=== PATIENT | male | born 1955 | race Caucasian/White ===

== ENCOUNTER 2019-11-19 14:02 | Outpatient (CLI) | payer BC, SELFPAY ==
--- NOTE | ~2019-11-19 | XR_ITS ---
EXAMINATION: XR chest 2V EXAM DATE: 11/19/2019 14:19 INDICATION: Cough. TECHNIQUE: Frontal and lateral projections of the chest obtained and reviewed. Comparison is made to prior examination from 05/17/2014. FINDINGS: Round right basilar nodular density probably patient's nipple. The lungs are otherwise leny r. There are no pleural effusions. The cardiomediastinal silhouette is within normal limits. There is no pneumothorax suspected. Small to moderate-sized bridging thoracic endplate osteophytes. Diffu se idiopathic skeletal hyperostosis. IMPRESSION: No acute cardiopulmonary findings. Reviewed, dictated and finalized at location B.
[2019-11-19 15:13] LABS: Basophils Absolute Auto 0.1 K/mm3 (0.0-0.1); Basophils Percent Auto 0.5 % (0.2-1.2); Eosinophils Absolute Auto 0.3 K/mm3 (0-0.3); Eosinophils Percent Auto 2.3 % (0-4.4); Hematocrit 46.4 % (42.0-52.0); Hemoglobin 15.9 g/dL (14.0-18.0); Immature Granulocyte Absolute 0.05 K/mm3 (0.00-0.031); Immature Granulocyte Percent A 0.4 % (0-0.5); Lymphocytes Absolute Auto 3.46 K/mm3 (0.9-3.2); Lymphocytes Percent Auto 26.1 % (18.3-44.2); Mean Corpuscular HGB Conc 34.3 g/dl (32-36); Mean Corpuscular Hemoglobin 29.7 pg (26-34); Mean Corpuscular Volume 86.7 fl (80-100); Monocytes Percent Auto 7.5 % (2.6-8.5); Neutrophils Absolute Auto 8.4 K/mm3 (1.3-6.7); Neutrophils Percent Auto 63.2 % (45.5-73.1); Platelet Count Result 323 k/mm3 (150-375); Red Blood Count 5.35 M/mm3 (4.6-6.20); White Blood Count 13.3 K/mm3 (4.5-10.0)
[2019-11-19 16:25] LABS: Hemoglobin A1C 8.5 % (<5.7)
== END 2019-11-19 14:03 | disposition home or self-care (01) ==
PROVIDERS: PCP Family Medicine; Visit Provider Family Medicine
DX: R05 Cough (principal); D72.829 Elevated white blood cell count, unspecified; R73.9 Hyperglycemia, unspecified
CPT/HCPCS: 36415; 71046; 83036; 85025

== ENCOUNTER 2021-02-08 08:15 | Outpatient (CLI) | payer BC, OTHER, SELFPAY ==
--- NOTE | 2021-02-08 08:43 | ECHO_ITS ---
Patient Info Name: Az Vick Age: 65 years : 1955 Gender: Male Ht: 72 in Wt: 200 lbs BSA: 2.16 m2 HR: 69 bpm BP: 194 / 105 mmHg Technical Quality: Fair Exam Date: 02/08/2021 8:59 AM Exam Location: [facility] Patient Status: Outpatient Admit Date: 02/08/2021 Staff Ordering Physician: Cat Comer PAC Real Estate Lawyer: Sandra Hannah RDCS Attending Provider: Cat Comer Referring Physician: Nahomi GONZALEZ; Exam Type: CA echo doppler color flow Study Info Indications R01.1 - Cardiac murmur, unspecified Complete two-dimensional, color flow and Doppler transthoracic echocardiogram is performed. Summary 1. Complete two-dimensional, color flow and Doppler transthoracic echocardiogram is performed. 2. Left ventricular chamber dimension is normal. 3. Left ventricular systolic function is normal, estimated at 60-65%. 4. The left ventricular diastolic function is grade II diastolic dysfunction. 5. E/e' 9 is minimally elevated. 6. Global longitudinal strain is normal at -17.8%. 7. There is trace tricuspid valve regurgitation. 8. No pulmonary hypertension, estimated pulmonary arterial systolic pressure is 17 mmHg. Left Ventricle E/e' 9 is minimally elevated. Global longitudinal strain is normal at -17.8%. Left ventricular chamber dimension is normal. Left ventricular systolic function is normal, estimated at 60-65%. The left ventricular diastolic function is grade II diastolic dysfunction. Right Ventricle Right ventricular chamber dimension is normal. Right ventricular systolic function is normal. Left Atria Left atrial chamber dimension is normal. Right Atria Right atrial chamber dimension is normal. Aortic Valve The aortic valve is trileaflet. There is no aortic valve stenosis. There is no aortic valve regurgitation. Pulmonic Valve There is no pulmonic regurgitation. Mitral Valve There is no mitral valve stenosis. There is no mitral valve regurgitation. Tricuspid Valve There is trace tricuspid valve regurgitation. No pulmonary hypertension, estimated pulmonary arterial systolic pressure is 17 mmHg. Pericardium/Pleural There is no pericardial effusion. Inferior Vena Cava Normal inferior vena cava with >50% collapse upon inspiration consistent with normal right atrial pressure, 5 mmHg. Aorta The aortic root size at the sinus of Valsalva is normal. Left Ventricular Outflow Tract Name Value Normal LVOT 2D LVOT Diameter 2.0 cm LVOT Doppler LVOT Peak Gradient 5 mmHg LVOT Mean Gradient 3 mmHg LVOT VTI 26 cm LVOT VTI/AV VTI Ratio 0.8 LVOT Stroke Volume 84 ml LVOT CO 5.4 l/min LVOT CI 2.5 l/min/m2 Pulmonic Valve Name Value Normal RVOT Doppler
== END 2021-02-08 08:16 | disposition home or self-care (01) ==
PROVIDERS: PCP Family Medicine; Visit Provider Physician Assistant Medical
DX: R01.1 Cardiac murmur, unspecified (principal); I36.1 Nonrheumatic tricuspid (valve) insufficiency
CPT/HCPCS: 93306

== ENCOUNTER 2021-03-19 12:33 | Outpatient (CLI) | payer BC, OTHER, SELFPAY ==
[2021-03-19 13:38] LABS: Basophils Absolute Auto 0.1 K/mm3 (0.0-0.1); Basophils Percent Auto 0.4 % (0.2-1.2); Eosinophils Absolute Auto 0.4 K/mm3 (0-0.3); Eosinophils Percent Auto 3.2 % (0-4.4); Hematocrit 44.4 % (42.0-52.0); Hemoglobin 15.1 g/dL (14.0-18.0); Immature Granulocyte Absolute 0.05 K/mm3 (0.00-0.031); Immature Granulocyte Percent A 0.4 % (0-0.5); Lymphocytes Absolute Auto 3.45 K/mm3 (0.9-3.2); Lymphocytes Percent Auto 25.9 % (18.3-44.2); Mean Corpuscular Hemoglobin 30.1 pg (26-34); Mean Corpuscular Volume 88.4 fl (80-100); Mean Platelet Volume 11.8 fl (7.4-10.4); Monocytes Absolute Auto 1.1 K/mm3 (0.1-0.6); Neutrophils Absolute Auto 8.3 K/mm3 (1.3-6.7); Neutrophils Percent Auto 62.1 % (45.5-73.1); Platelet Count Result 306 k/mm3 (150-375); Red Blood Count 5.02 M/mm3 (4.6-6.20); Red Cell Distribution Width 12.2 % (11.5-14.5); White Blood Count 13.3 K/mm3 (4.5-10.0)
[2021-03-19 13:50] LABS: Hemoglobin A1C 9.5 % (<5.7)
[2021-03-19 13:57] LABS: Alanine Aminotransferase 23 U/L (4-50); Albumin Level 4.5 g/dL (3.5-5.1); Alkaline Phosphatase 78 U/L (38-126); Anion Gap 8 mmol/L (8-16); Aspartate Amino Transferase 23 U/L (17-59); Bilirubin,Total 0.8 mg/dL (0.2-1.3); Blood Urea Nitrogen 19 mg/dL (9-20); Calcium 9.5 mg/dL (8.4-10.2); Carbon Dioxide 31 mmol/L (22-30); Chloride 102 mmol/L (98-107); Cholesterol 108 mg/dL (0-200); Estimated Glomerular Filt Rate > 60; Glucose 238 mg/dL (75-110); HDL Direct 39 mg/dL; Potassium 3.8 mmol/L (3.4-5.0); Sodium 141 mmol/L (137-145); Triglycerides 121 mg/dL (<150)
[2021-03-19 14:08] LABS: LDL Cholesterol Direct 45 mg/dL
[2021-03-19 14:24] LABS: Prostate Specific Antigen 0.7 ng/mL (< OR = 4.0)
[2021-03-19 19:15] LABS: Microalbumin Urine Random 231.8 mg/L (0-16.7)
[2021-03-19 19:47] LABS: Creatinine Urine 420.5 mg/dL; MALB Creatinine Ratio 55.1 mg/g (0-30)
== END 2021-03-19 12:34 | disposition home or self-care (01) ==
LOC: ANHLAB 12:36
PROVIDERS: PCP Family Medicine; Visit Provider Physician Assistant Medical
DX: E11.9 Type 2 diabetes mellitus without complications (principal); E78.2 Mixed hyperlipidemia; D72.829 Elevated white blood cell count, unspecified; Z12.5 Encounter for screening for malignant neoplasm of prostate
CPT/HCPCS: 36415; 80053; 80061; 82043; 83036; 84153; 85025; G0103

== ENCOUNTER 2021-04-20 02:54 | Day surgery (SDC) | payer BC, OTHER, SELFPAY ==
[2021-04-18 15:56] VITALS: BMI 27.1
--- NOTE | 2021-04-20 07:17 | PM.HPGS ---
History of Present Illness History of Present Illness Consent: Risks, benefits, and alternatives have been discussed and questions answered. Patient agrees to proceed with procedure. Chief complaint: neoplasm screening Narrative: Az Vick is a 65 year old male referred for colon cancer screening. Review of Systems Review of Systems: All systems reviewed & are unremarkable except as noted in HPI and below PMFSH Past Medical History Medical History BMI 28.0-28.9,adult Cough Diabetes mellitus Diastolic dysfunction Elevated blood sugar Elevated white blood cell count Mixed hyperlipidemia Neuropathy Sleep apnea in adult Family History Family History Sibling Family history of diabetes mellitus in first degree relative Father Family history of coronary artery disease Social History Social History Smoking packs per day: 1 Smoking cigarettes per day: 20.0 Years smoked: 20 Smoking pack-years: 20.00 Smoking status: Current every day smoker Tobacco type: cigarettes Alcohol intake: never Substance use: never Substance use type: does not use Living arrangements: with family Spiritual care concerns: No Meds Home Medications and Allergies Home Medications Medication Instructions Recorded Confirmed Type blood sugar diagnostic #60 each 01/05/20 04/11/21 Rx lisinopril 10 mg tablet 10 mg PO DAILY #90 tablet 03/21/21 04/18/21 Rx rosuvastatin 40 mg tablet 40 mg PO DAILY #90 tablet 03/21/21 04/18/21 Rx gabapentin 600 mg PO TID PRN 04/18/21 04/18/21 History metformin 1,000 mg PO BID 04/18/21 04/18/21 History Allergies Allergy/AdvReac Type Severity Reaction Status Date / Time No Known Allergies Verified 04/20/21 11:39 Exam Resp: Auscultation: clear to auscultation bilaterally Cardio: Rate: regular rate Rhythm: regular rhythm GI: GI Palp: Yes Soft to palpation and No Tenderness to palpation present (GI) Assessment and Plan Assessment and plan (1) Screen for colon cancer: Code(s): Z12.11 - Encounter for screening for malignant neoplasm of colon Status: Acute Assessment and Plan: Colonoscopy with possible biopsy or polypectomy or cautery or injection of substances.
[2021-04-20 11:40] VITALS: BP 125/72; PULSE 60; RESP 18; TEMP 36.3; O2SAT 100
--- NOTE | 2021-04-20 12:05 | WPDANESEPPF ---
Anes - Initial Pre Proc Eval Procedure: Operation Date: 04/20/21 12:00 Proposed Procedures p Screening Colonoscopy - Dave Ortega MD Date/Time: 04/20/21 12:05 Surgeon: Dave Ortega MD Pre Op Diagnosis: neoplasm screening Patient Data Age: 65 Gender: M Height: 1.83 m Weight: 89.1 kg Last Vital Signs Temp 36.3 C L 04/20/21 11:40 Pulse 60 04/20/21 11:40 Resp 18 04/20/21 11:40 BP 125/72 04/20/21 11:40 Pulse Ox 100 04/20/21 11:40 Allergies Allergy/AdvReac Type Severity Reaction Status Date / Time No Known Allergies Verified 04/20/21 11:39 Home Medications Medication Instructions Recorded Confirmed Type blood sugar diagnostic #60 each 01/05/20 04/11/21 Rx lisinopril 10 mg tablet 10 mg PO DAILY #90 tablet 03/21/21 04/18/21 Rx rosuvastatin 40 mg tablet 40 mg PO DAILY #90 tablet 03/21/21 04/18/21 Rx gabapentin 600 mg PO TID PRN 04/18/21 04/18/21 History metformin 1,000 mg PO BID 04/18/21 04/18/21 History Patient hx anesthesia problems: none Family hx anesthesia problems: none PMFSH Past Medical History Medical History BMI 28.0-28.9,adult Cough Diabetes mellitus Diastolic dysfunction Elevated blood sugar Elevated white blood cell count Mixed hyperlipidemia Neuropathy Sleep apnea in adult Family History Family History Sibling Family history of diabetes mellitus in first degree relative Father Family history of coronary artery disease Social History Social History Smoking packs per day: 1 Smoking cigarettes per day: 20.0 Years smoked: 20 Smoking pack-years: 20.00 Smoking status: Current every day smoker Tobacco type: cigarettes Alcohol intake: never Substance use: never Substance use type: does not use Living arrangements: with family Spiritual care concerns: No Anes - Eval Final PreProcedure Day of Procedure 04/20/21 12:05 Patient weight: overweight Heart: regular rate and rhythm Lungs: decreased breath sounds Airway: Mallampati scale class II Neurological: alert and oriented Last oral intake: >/= 8 hours ASA classification: III Emergent: no Anesthetic plan: proceed Anesthesia type and monitoring: general GIVS and standard monitoring Informed Consent: The patient's anesthetic plan and its attendant risks and benefits were discussed with the patient/family/POA. Questions were solicited and answers provided to the satisfaction of the patient/family/POA.
[2021-04-20 12:06] LABS: Glucose Point of Care 177 mg/dl (65-105)
[2021-04-20] MEDS: LACTATED RINGERS 1,000 ML 150 ML IV CONT (12:18)
[2021-04-20] MEDS: SIMETHICONE ORAL SUSPENSION 20 MG/0.3 ML 30 ML BOTTLE 0.6 ML IRRIGATION (12:30)
[2021-04-20 12:35] VITALS: BP 95/57; PULSE 58; RESP 15; O2SAT 93
[2021-04-20 12:45] VITALS: BP 99/65; PULSE 52; RESP 14; O2SAT 93
[2021-04-20 12:55] VITALS: BP 126/71; PULSE 54; RESP 14; O2SAT 94
== END 2021-04-20 13:14 | disposition home or self-care (01) ==
PROVIDERS: PCP Family Medicine; Visit Provider Internal Medicine Gastroenterology
PROC: 0DJD8ZZ Inspection of Lower Intestinal Tract, Via Natural or Artificial Opening Endoscopic (ICD-10-PCS; CPT 45378; principal; 2021-04-20 12:00)
DX: Z12.11 Encounter for screening for malignant neoplasm of colon (principal); E78.2 Mixed hyperlipidemia; E11.40 Type 2 diabetes mellitus with diabetic neuropathy, unspecified; I51.89 Other ill-defined heart diseases; G47.30 Sleep apnea, unspecified; F17.210 Nicotine dependence, cigarettes, uncomplicated; Z79.84 Long term (current) use of oral hypoglycemic drugs
CPT/HCPCS: 45378; 82948; J2704; J7120

== ENCOUNTER 2021-05-22 14:00 | Outpatient (CLI) | payer MEDICARE, BC, OTHER, SELFPAY ==
[2021-05-22 14:32] LABS: Basophils Absolute Auto 0.1 K/mm3 (0.0-0.1); Basophils Percent Auto 0.5 % (0.2-1.2); Eosinophils Absolute Auto 0.5 K/mm3 (0-0.3); Eosinophils Percent Auto 3.5 % (0-4.4); Hematocrit 43.2 % (42.0-52.0); Hemoglobin 14.9 g/dL (14.0-18.0); Immature Granulocyte Absolute 0.03 K/mm3 (0.00-0.031); Immature Granulocyte Percent A 0.2 % (0-0.5); Lymphocytes Absolute Auto 3.95 K/mm3 (0.9-3.2); Lymphocytes Percent Auto 27.7 % (18.3-44.2); Mean Corpuscular HGB Conc 34.5 g/dl (32-36); Mean Corpuscular Hemoglobin 30.1 pg (26-34); Mean Corpuscular Volume 87.3 fl (80-100); Mean Platelet Volume 11.4 fl (7.4-10.4); Monocytes Absolute Auto 1.1 K/mm3 (0.1-0.6); Monocytes Percent Auto 7.9 % (2.6-8.5); Neutrophils Absolute Auto 8.6 K/mm3 (1.3-6.7); Neutrophils Percent Auto 60.2 % (45.5-73.1); Platelet Count Result 286 k/mm3 (150-375); Red Blood Count 4.95 M/mm3 (4.6-6.20); Red Cell Distribution Width 12.8 % (11.5-14.5); White Blood Count 14.3 K/mm3 (4.5-10.0)
[2021-05-22 15:15] LABS: Erythrocyte Sedimentation Rate 17 mm/hr (0-20)
[2021-05-22 16:59] LABS: Alanine Aminotransferase 31 U/L (4-50); Albumin Level 4.6 g/dL (3.5-5.1); Alkaline Phosphatase 76 U/L (38-126); Anion Gap 12 mmol/L (8-16); Aspartate Amino Transferase 27 U/L (17-59); Bilirubin,Total 0.5 mg/dL (0.2-1.3); Blood Urea Nitrogen 15 mg/dL (9-20); CRP < 0.5 mg/dL (<1.0); Calcium 9.5 mg/dL (8.4-10.2); Carbon Dioxide 23 mmol/L (22-30); Chloride 109 mmol/L (98-107); Estimated Glomerular Filt Rate > 60; Glucose 201 mg/dL (65-110); Potassium 4.1 mmol/L (3.4-5.0); Sodium 144 mmol/L (137-145)
[2021-05-24 15:45] LABS: BCR/abl Prior Result Not Given
[2021-05-24 16:32] LABS: BCR/abl P190 Not Detected; BCR/abl P210 Not Detected
[2021-05-24 16:33] LABS: BCR/abl P190 Chg YES; BCR/abl P210 Chg YES
== END 2021-05-22 14:01 | disposition home or self-care (01) ==
LOC: ANHLAB 14:07
PROVIDERS: PCP Family Medicine; Visit Provider Internal Medicine Hematology & Oncology
DX: D72.829 Elevated white blood cell count, unspecified (principal)
CPT/HCPCS: 36415; 80053; 81206; 81207; 85025; 85652; 86140; 88184

== ENCOUNTER 2022-05-28 14:07 | Outpatient (CLI) | payer MEDICARE, BC, OTHER, SELFPAY ==
[2022-05-28 14:47] LABS: Hematocrit 42.6 % (42.0-52.0); Hemoglobin 14.1 g/dL (14.0-18.0); Mean Corpuscular HGB Conc 33.1 g/dl (32-36); Mean Corpuscular Hemoglobin 30.1 pg (26-34); Mean Corpuscular Volume 90.8 fl (80-100); Mean Platelet Volume 11.8 fl (7.4-10.4); Platelet Count Result 328 k/mm3 (150-375); Red Blood Count 4.69 M/mm3 (4.6-6.20); Red Cell Distribution Width 12.6 % (11.5-14.5); White Blood Count 13.8 K/mm3 (4.5-10.0)
[2022-05-28 15:12] LABS: Alanine Aminotransferase 26 U/L (6-50); Albumin Level 4.6 g/dL (3.5-5.1); Alkaline Phosphatase 71 U/L (38-126); Anion Gap 9 mmol/L (8-16); Aspartate Amino Transferase 24 U/L (17-59); Bilirubin,Total 0.7 mg/dL (0.2-1.3); Blood Urea Nitrogen 20 mg/dL (9-20); Calcium 9.1 mg/dL (8.4-10.2); Carbon Dioxide 26 mmol/L (22-30); Chloride 104 mmol/L (98-107); Cholesterol 89 mg/dL (0-200); Estimated Glomerular Filt Rate > 60; Glucose 159 mg/dL (65-110); HDL Direct 45 mg/dL; Potassium 3.9 mmol/L (3.4-5.0); Sodium 139 mmol/L (137-145); Triglycerides 70 mg/dL (<150)
[2022-05-28 15:22] LABS: LDL Cholesterol Direct 31 mg/dL
[2022-05-28 15:26] LABS: Creatinine Urine 28.9 mg/dL
[2022-05-28 15:30] LABS: MALB Creatinine Ratio 77.5 mg/g (0-30); Microalbumin Urine Random 22.4 mg/L (0-16.7)
[2022-05-28 15:41] LABS: Prostate Specific Antigen 0.7 ng/mL (< OR = 4.0)
[2022-05-28 16:24] LABS: Vitamin D 25 Hydroxy 38.9 ng/mL
[2022-06-01 09:30] LABS: Testosterone Total 450 ng/dL (250-1100)
== END 2022-05-28 14:08 | disposition home or self-care (01) ==
LOC: ANHLAB 14:11
PROVIDERS: PCP Family Medicine; Visit Provider Nurse Practitioner Family
DX: Z12.5 Encounter for screening for malignant neoplasm of prostate (principal); E11.9 Type 2 diabetes mellitus without complications; Z13.29 Encounter for screening for other suspected endocrine disorder; E34.9 Endocrine disorder, unspecified; I10 Essential (primary) hypertension; E78.2 Mixed hyperlipidemia; E55.9 Vitamin D deficiency, unspecified
CPT/HCPCS: 36415; 80053; 80061; 82043; 82306; 84153; 84402; 84403; 84443; 85027; G0103

== ENCOUNTER 2024-09-26 00:13 | Observation (INO) | payer MEDICARE, OTHER, SELFPAY ==
[2024-09-26] VITALS (17 sets, daily range): BP systolic 123–195; BP diastolic 60–93; PULSE 50–118; RESP 13–20; TEMP 36.4–36.9; O2SAT 97–100; BMI 23.0
--- NOTE | ~2024-09-26 | CT_ITS ---
CTA brain carotid Ordering provider: Tu Alvarez History: . r/o cva . Comparison: 02/10/2018 Technique: CT angiogram head and neck was performed following timed intravenous injection of contrast . Thin slice axial images and reformatted coronal images were obtained. Three dimensional reformatted images of the brain were also obtained using a [employer] workstation. DLP: 1893 mGy-cm FINDINGS: HEAD: --ANTERIOR AND MIDDLE CEREBRAL ARTERIES AND BRANCHES: Normal caliber and contour. --INTERNAL CAROTID ARTERIES: No significant stenosis. No occlusion. --BASILAR ARTERY AND BRANCHES: Normal caliber and contour. No atheromatous disease. --POSTERIOR CEREBRAL ARTERIES: Normal caliber and contour --POSTERIOR COMMUNICATING ARTERIES: Not well visualized likely related to congenital absence or small size. --ANEURYSM: None visualized. --BRAIN: No acute intracranial hemorrhage or suspicious mass effect. The ventricles are normal in contour and size. Dumont-white matter differentiation is unremarkable. Possible prior right lacunar infarct within the thalamus. --BONES AND SUPERFICIAL SOFT TISSUES: No acute displaced fracture within the overlying cranium. No sc alp hematoma. --PARANASAL SINUSES AND MASTOIDS: The paranasal sinuses are clear. The mastoid air cells are well aerated. NECK: --RIGHT CERVICAL CAROTID SYSTEM: Mild atheromatous disease of the carotid bulb and proximal internal carotid artery without significant stenosis. Percent stenosis per NASCET criteria is 0% No carotid d issection. --LEFT CERVICAL CAROTID SYSTEM: Mild atheromatous disease of the carotid bulb and proximal internal c arotid artery without significant stenosis. Percent stenosis per NASCET criteria is 0% No carotid di ssection. --VERTEBRAL ARTERIES: Asymmetry within the vertebral arteries with the caliber of the left vertebral artery markedly diminutive in comparison to the right. --VISUALIZED AORTIC ARCH AND BRANCHING VESSELS: Mild atheromatous disease but no significant stenosis . --SOFT TISSUES: Normal. --CERVICAL SPINE: Age appropriate degenerative changes. IMPRESSION: 1. Normal CTA head and neck. Percent stenosis per NASCET criteria is 0% bilaterally 2. No acute intracranial hemorrhage or suspicious mass effect. 3. Prior right-sided lacunar infarct. Reviewed, dictated and finalized at location A. ARCHITECT IMPRESSION: 1. Normal CTA head and neck. Percent stenosis per NASCET criteria is 0% bilciara harrison 2. No acute intracranial hemorrhage or suspicious mass effect. 3. Prior right-sided lacunar infarct.
--- NOTE | ~2024-09-26 | MR_ITS ---
EXAMINATION: MR brain/brain stem wo/w con DATE: 09/26/2024 10:56 INDICATION: Left facial droop TECHNIQUE: Magnetic resonance imaging (MRI) of the brain and brainstem was performed without and with 19 mL MultiHance intravenous contrast. Sequences included sagittal and axial T1-weighted SE, axial d iffusion-weighted FS EPI ASSET, axial T2*-weighted GRE, axial T2-weighted FLAIR Propeller, and axial T2-weighted Propeller. Postcontrast axial and coronal T1-weighted SE was obtained. Apparent diffusion coefficient (ADC) maps were created. COMPARISON: CT brain 02/10/2018 FINDINGS: Focal diffusion restriction involving the anterior portion of the right thalamus, with corresponding T2 and FLAIR hyperintensity. No MRI evidence of hemorrhage or extra-axial collection. No suspicious f oci of susceptibility to suggest prior intraparenchymal hemorrhage. Scattered foci of white matter hy perintensity, likely representing mild small vessel ischemic disease. No evidence of advanced or loba r predominant parenchymal volume loss. The basilar cisterns are patent. Flow voids are preserved. Fro ntal, ethmoid, and maxillary callosal thickening. Globes and orbital contents are within normal limit s. No abnormal enhancement detected. IMPRESSION: Focal acute infarct involving the anterior portion of the right thalamus. Reviewed, dictated and finalized at location K. ORT SCREENER
--- NOTE | ~2024-09-26 | XR_ITS ---
CHEST RADIOGRAPH CLINICAL HISTORY: possible stroke . COMPARISON: 11/19/2019 TECHNIQUE: Single portable view of the chest. FINDINGS The cardiomediastinal silhouette is unremarkable. The lungs are clear. Visualized osseous structures and soft tissues are unremarkable. IMPRESSION: No focal infiltrate or effusion. Reviewed, dictated and finalized at location A. STRETCHING MACHINE OPERATOR
--- NOTE | 2024-09-26 00:37 | ECG_ITS ---
Test Date: 2024-09-26 00:41:10 Measurements Intervals [place] Rate: 55 P: 38 [place]: 177 QRS: -38 QRSD: 114 T: 8 QT: 410 QTc: 393 Interpretive Statements SINUS BRADYCARDIA MARKED LEFT AXIS DEVIATION [QRS AXIS < -30] MODERATE INTRAVENTRICULAR CONDUCTION DELAY [110+ ms QRS DURATION] No previous ECG available for comparison Electronically Signed On 09-26-2024 10:04:26 [employer] by Kavin Quintana M.D.
[2024-09-26 01:32] LABS: Basophils Absolute Auto 0.1 K/mm3 (0.0-0.1); Basophils Percent Auto 0.5 % (0.2-1.2); Eosinophils Absolute Auto 0.9 K/mm3 (0-0.3); Eosinophils Percent Auto 8.1 % (0-4.4); Hematocrit 39.6 % (42.0-52.0); Hemoglobin 13.3 g/dL (14.0-18.0); Immature Granulocyte Absolute 0.02 K/mm3 (0.00-0.031); Immature Granulocyte Percent A 0.2 % (0-0.5); Lymphocytes Absolute Auto 4.16 K/mm3 (0.9-3.2); Lymphocytes Percent Auto 38.6 % (18.3-44.2); Mean Corpuscular HGB Conc 33.6 g/dl (32-36); Mean Corpuscular Hemoglobin 30.2 pg (26-34); Mean Platelet Volume 12.2 fl (7.4-10.4); Monocytes Percent Auto 9.1 % (2.6-8.5); Neutrophils Absolute Auto 4.7 K/mm3 (1.3-6.7); Neutrophils Percent Auto 43.5 % (45.5-73.1); Platelet Count Result 262 k/mm3 (150-375); Red Cell Distribution Width 12.6 % (11.5-14.5); White Blood Count 10.8 K/mm3 (4.5-10.0)
[2024-09-26 01:43] LABS: Alanine Aminotransferase 24 U/L (6-50); Albumin Level 3.6 g/dL (3.5-5.1); Alkaline Phosphatase 84 U/L (38-126); Anion Gap 5 mmol/L (4-12); Aspartate Amino Transferase 25 U/L (17-59); Bilirubin,Total 0.4 mg/dL (0.2-1.3); Blood Urea Nitrogen 23 mg/dL (9-20); Calcium 8.3 mg/dL (8.4-10.2); Carbon Dioxide 30 mmol/L (22-30); Chloride 106 mmol/L (98-107); Estimated CRCL calculation 73 ml/min; Estimated Glomerular Filt Rate > 60; Glucose 166 mg/dL (65-110); INR 1.5; Partial Thromboplastin Time 26.2 Seconds (22.3-36.8); Potassium 3.8 mmol/L (3.4-5.0); Prothrombin Time 18.4 Seconds (11.1-14.7); Sodium 141 mmol/L (137-145)
[2024-09-26 01:54] LABS: Troponin I < 0.012 ng/mL (0.000-0.034)
--- NOTE | 2024-09-26 03:50 | ED.GENADULT ---
HPI - General Adult General Chief complaint: Recheck/Abnormal Lab/Rx Stated complaint: Elevated BP Time Seen by Provider: 09/26/24 00:39 History of Present Illness HPI narrative: This is a 69-year-old male presenting concerns for stroke. Starting 2 days ago the patient developed mild left-sided facial droop, balance disturbances, and persistently elevated blood pressures. His also thinks he has been more confused than usual. The patient himself admits to having some trouble with his balance. He is denying any other neurologic symptoms. No other physical complaints. Related Data Allergies Allergy/AdvReac Type Severity Reaction Status Date / Time No Known Allergies Allergy Verified 09/26/24 00:25 [facility] Past Medical History Medical History Adult BMI 25.0-25.9 kg/sq m Diastolic dysfunction BMI 28.0-28.9,adult Diabetes mellitus Elevated white blood cell count Cough Elevated blood sugar Mixed hyperlipidemia Neuropathy Sleep apnea in adult Family History Family History Sibling Family history of diabetes mellitus in first degree relative Father Family history of coronary artery disease Alcoholism Cancer Mother Cerebrovascular accident Dementia Diabetes mellitus Sibling Cancer Diabetes mellitus Social History Social History Smoking packs per day: 1 Smoking cigarettes per day: 20.0 Years smoked: 20 Smoking pack-years: 20.00 Smoking status: Current every day smoker Tobacco type: cigarettes Second hand tobacco smoke exposure: Yes Alcohol intake: never Substance use: never Substance use type: does not use Do You Feel Safe in your Home?: Yes Lack of Transportation: No Lack of Food: Never True Current Housing: I Have Housing Concerned About Future Housing: No Difficulty Paying Gas/Electric Bills: No Difficulty Paying for Meds: No Currently Unemployed: No Education: Trade/Vocational Certificate Difficulty w/ Childcare or Family Care: No Living arrangements: with family Occupation/Education: retired 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 Head: atraumatic. EYES: EOMI, NOSE: Atraumatic NECK: Trachea midline RESPIRATORY: No increased rate of breathing CARDIOVASCULAR: RRR, ABDOMINAL: Non-distended MUSCULOSKELETAl: No obvious deformities NEURO: Alert. Moving 4/4 extremities SKIN:: Warm, dry. Normal color PSYCHIATRIC: Normal affect NIH Stroke Scale/Score (NIHSS) from [email or web address] on 09/26/2024 All calculations should be rechecked by clinician prior to use RESULT SUMMARY: 1 points NIH Stroke Scale INPUTS: 1A: Level of consciousness ?> 0 = Alert; keenly responsive 1B: Ask month and age ?> 0 = Both questions right 1C: 'Blink eyes' & 'squeeze hands' ?> 0 = Performs both tasks 2: Horizontal extraocular movements ?> 0 = Normal 3: Visual collazo ?> 0 = No visual loss 4: Facial palsy ?> 1 = Minor paralysis (flat nasolabial fold, smile asymmetry) 5A: Left arm motor drift ?> 0 = No drift for 10 seconds 5B: Right arm motor drift ?> 0 = No drift for 10 seconds 6A: Left leg motor drift ?> 0 = No drift for 5 seconds 6B: Right leg motor drift ?> 0 = No drift for 5 seconds 7: Limb Ataxia ?> 0 = No ataxia 8: Sensation ?> 0 = Normal; no sensory loss 9: Language/aphasia ?> 0 = Normal; no aphasia 10: Dysarthria ?> 0 = Normal 11: Extinction/inattention ?> 0 = No abnormality Course Vital Signs Vital signs: Vital Signs Temperature 97.6 F 09/26/24 00:19 Pulse Rate 65 09/26/24 00:19 Respiratory Rate 18 09/26/24 00:19 Blood Pressure 195/84 H 09/26/24 00:19 Pulse Oximetry 99 09/26/24 00:19 Oxygen Delivery Room Air 09/26/24 00:19 Temperature 97.6 F 09/26/24 00:19 Pulse Rate 50 L 09/26/24 02:49 Respiratory Rate 14 09/26/24 02:49 Blood Pressure 184/92 H 09/26/24 02:49 Pulse Oximetry 98 09/26/24 02:49 Oxygen Delivery Room Air 09/26/24 00:19 Medical Decision Making MDM Narrative Medical decision making narrative: -Course:61-year-old male presenting 2 days after developing left-sided facial droop, balance disturbances and elevated blood pressures. NIH of 1 for facial droop. Not tPA candidate due to delayed presentation. blood pressure is elevated 195/84. Symptoms started 2 days ago use out acute phase. The given hydralazine for blood pressure. symptoms could be due to hypertensive emergency versus possible. Patient will be admitted for MRI to confirm the diagnosis -DDX includes but is not limited to: CVA, hypertensive emergency, viral syndrome, dehydration -Co-morbidities complicating care: hypertension, high cholesterol -Independent interpretation of studies: labs and imaging reviewed stat rad CTA Brain/Carotid - Mild right IC stenosis -Discussion of Management/Consultants: Carl -Interventions: ASA, hydralazine. -Shared decision making / Disposition:Admitted. Vital Signs Vital Signs: Vital Signs Temperature 97.6 F 09/26/24 00:19 Pulse Rate 65 09/26/24 00:19 Respiratory Rate 18 09/26/24 00:19 Blood Pressure 195/84 H 09/26/24 00:19 Pulse Oximetry 99 09/26/24 00:19 Oxygen Delivery Room Air 09/26/24 00:19 Temperature 97.6 F 09/26/24 00:19 Pulse Rate 50 L 09/26/24 02:49 Respiratory Rate 14 09/26/24 02:49 Blood Pressure 184/92 H 09/26/24 02:49 Pulse Oximetry 98 09/26/24 02:49 Oxygen Delivery Room Air 09/26/24 00:19 Lab Data 09/26/24 01:26 09/26/24 01:26 Labs: Lab Results 09/26/24 Range/Units 01:26 WBC 10.8 H (4.5-10.0) K/mm3 RBC 4.40 L (4.6-6.20) M/mm3 Hgb 13.3 L (14.0-18.0) g/dL Hct 39.6 L (42.0-52.0) % MCV 90.0 (80-100) fl MCH 30.2 (26-34) pg MCHC 33.6 (32-36) g/dl RDW 12.6 (11.5-14.5) % Plt Count 262 (150-375) k/mm3 MPV 12.2 H (7.4-10.4) fl Immature Gran % (Auto) 0.2 (0-0.5) % Neut % (Auto) 43.5 L (45.5-73.1) % Lymph % (Auto) 38.6 (18.3-44.2) % [place] % (Auto) 9.1 H (2.6-8.5) % Eos % (Auto) 8.1 H (0-4.4) % Baso % (Auto) 0.5 (0.2-1.2) % Lymph # (Auto) 4.16 H (0.9-3.2) K/mm3 [place] # (Auto) 1.0 H (0.1-0.6) K/mm3 Eos # (Auto) 0.9 H (0-0.3) K/mm3 Baso # (Auto) 0.1 (0.0-0.1) K/mm3 Abs Immat Gran (auto) 0.02 (0.00-0.031) K/mm3 Absolute Neuts (auto) 4.7 (1.3-6.7) K/mm3 Absolute Nucleated RBC 0.000 (0.0-0.012) K/mm3 Nucleated RBC % 0.0 (0.0-0.2) % PT 18.4 H (11.1-14.7) Seconds INR 1.5 APTT 26.2 (22.3-36.8) Seconds Sodium 141 (137-145) mmol/L Potassium 3.8 (3.4-5.0) mmol/L Chloride 106 (98-107) mmol/L Carbon Dioxide 30 (22-30) mmol/L Anion Gap 5 (4-12) mmol/L BUN 23 H (9-20) mg/dL Creatinine 0.94 (0.7-1.3) mg/dL Estim Creat Clear Calc 73 ml/min Estimated GFR > 60 (59 - ) Glucose 166 H (65-110) mg/dL Calcium 8.3 L (8.4-10.2) mg/dL Total Bilirubin 0.4 (0.2-1.3) mg/dL AST 25 (17-59) U/L ALT 24 (6-50) U/L Alkaline Phosphatase 84 (38-126) U/L Troponin I < 0.012 (0.000-0.034) ng/mL Total Protein 6.0 L (6.3-8.2) g/dL Albumin 3.6 (3.5-5.1) g/dL Discharge Plan Discharge Clinical Impression: CVA (cerebrovascular accident) Patient Disposition: Still a Patient Condition: Stable Patient Language: Georgian Prescriptions: No Action atorvastatin 10 mg tablet 10 mg PO QHS Qty: 90 1RF lisinopril 10 mg tablet 10 mg PO DAILY Qty: 30 1RF Follow-up/Referrals: Chanelle Ho DO [Primary Care Provider] -
[2024-09-26] MEDS: ASPIRIN 81 MG CHEWABLE TABLET 324 MG PO (04:20)
[2024-09-26] MEDS: hydrALAZINE HCL 20 MG/ML VIAL 10 MG IV PUSH (04:20)
--- NOTE | 2024-09-26 07:26 | ADMGEN ---
This patient, Az Vick, was admitted to Medical Room 248-. Patient/family oriented to hospital policies and general routines including ID bracelet, bed and alarms, visiting hours, pain management, procedures, bathroom and other care routines, personal items, smoking policy, room service/diet, and visiting hours. Information on how to activate the Rapid Response Team has been discussed. Patient/Family are encouraged to report perceived risks to care and to ask questions if they do not understand what they are told or what they should do.
--- NOTE | 2024-09-26 10:26 | PC.NURSE ---
pt taken down for MRI.
--- NOTE | 2024-09-26 14:43 | P.HP_ITS ---
H&P: HPI History of Present Illness Date/Time: 09/26/24 14:43 Chief Complaint: Elevated BP and confusion Narrative: ER-HPI narrative: This is a 69-year-old male presenting concerns for stroke. Starting 2 days ago the patient developed mild left-sided facial droop, balance disturbances, and persistently elevated blood pressures. His also thinks he has been more confused than usual. The patient himself admits to having some trouble with his balance. He is denying any other neurologic symptoms. No other physical complaints. patient is a poor historian does not provide detail history states his sent him to emergency department as patient had been confused and had trouble with balance, even has employer also noticed decrease in physical activity, upon arrival patient blood pressure was emergently elevated and patient was hydralazine in the ER, currently patient denies any chest pain, shortness of breath, dizziness or headache, to further evaluate CTA of the head and MRI of the brain is ordered, MRI of the brain showed focal acute infarct involving the anterior portion of the right thalamus patient was given aspirin 325 mg x 1, will start the patient on aspirin 81 mg q.day patient had been taking Lipitor 10 mg q.day will increase it to 40 mg q.day and have PT OT evaluate the patient and further recommendation to follow, patient blood pressure is trending down will resume his home medication lisinopril 10 mg q.day and monitor patient blood pressure for next 48 hours before adjusting his blood pressure medications. Will start the patient on clear liquid and monitor advanced as tolerated Review of Systems Review of Systems: All systems reviewed & are unremarkable except as noted in HPI and below PMFSH Past Medical History Medical History Adult BMI 25.0-25.9 kg/sq m Diastolic dysfunction BMI 28.0-28.9,adult Diabetes mellitus Elevated white blood cell count Cough Elevated blood sugar Mixed hyperlipidemia Neuropathy Sleep apnea in adult Family History Family History Sibling Family history of diabetes mellitus in first degree relative Father Family history of coronary artery disease Alcoholism Cancer Mother Cerebrovascular accident Dementia Diabetes mellitus Sibling Cancer Diabetes mellitus Social History Social History Smoking packs per day: 0.75 Smoking cigarettes per day: 15.0 Years smoked: 20 Smoking pack-years: 15.00 Smoking status: Current every day smoker Tobacco type: cigarettes Second hand tobacco smoke exposure: Yes Alcohol intake: current Drinks per week: 2 Substance use: never Substance use type: does not use Do You Feel Safe in your Home?: Yes Lack of Transportation: No Lack of Food: Never True Current Housing: I Have Housing Concerned About Future Housing: No Difficulty Paying Gas/Electric Bills: No Difficulty Paying for Meds: No Currently Unemployed: No Education: Don't Know Difficulty w/ Childcare or Family Care: No Living arrangements: with family Occupation/Education: retired 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[employer] Gender identity (if verbalized by the patient): Male Spiritual care concerns: No Meds Home Medications and Allergies Home Medications ?Medication ?Instructions ?Recorded ?Confirmed ?Type atorvastatin 10 mg tablet 10 mg PO QHS #90 tabs 06/03/24 09/26/24 Rx lisinopril 10 mg tablet 10 mg PO HS 09/26/24 09/26/24 History Allergies Allergy/AdvReac Type Severity Reaction Status Date / Time No Known Allergies Allergy Verified 09/26/24 00:25 Vital Signs Vital Signs - 24 hr 09/26/24 00:19 09/26/24 00:33 09/26/24 00:44 Temperature 36.4 C Pulse Rate 65 59 L Respiratory Rate 18 17 17 Blood Pressure 195/84 H 190/77 H Pulse Oximetry 99 100 100 Oxygen Delivery Room Air 09/26/24 01:13 09/26/24 02:49 09/26/24 04:23 Temperature Pulse Rate 54 L 50 L 62 Respiratory Rate 14 14 15 Blood Pressure 171/81 H 184/92 H 192/93 H Pulse Oximetry 98 98 100 Oxygen Delivery 09/26/24 05:25 09/26/24 06:47 09/26/24 07:06 Temperature 36.9 C Pulse Rate 55 L 50 L 59 L Respiratory Rate 18 13 18 Blood Pressure 150/80 H 155/83 H 178/93 H Pulse Oximetry 100 100 99 Oxygen Delivery 09/26/24 08:00 09/26/24 08:13 09/26/24 09:20 Temperature Pulse Rate 118 H Respiratory Rate Blood Pressure Pulse Oximetry 98 Oxygen Delivery Room Air Room Air 09/26/24 12:00 09/26/24 13:20 09/26/24 13:21 Temperature Pulse Rate 62 Respiratory Rate Blood Pressure Pulse Oximetry Oxygen Delivery Room Air Room Air Exam Narrative: Patient is comfortable, NA, patient has a normal speech HEENT: eyes are clear and none icteric, there is facial symmetry LUNGS:CTA HEART: RR S1S2 ABD: BS+, Soft and nontender Lower extremities: no edema MS: Upper and lower extremities power and strength bilaterally symmetrical and 5/5 SKIN: nonjaundiced Neuro: grossly intact. H&P: Results Labs Labs: Short CBC 09/26/24 Range/Units 01:26 WBC 10.8 H (4.5-10.0) K/mm3 Hgb 13.3 L (14.0-18.0) g/dL Hct 39.6 L (42.0-52.0) % Plt Count 262 (150-375) k/mm3 BMP 09/26/24 01:26 Sodium 141 Potassium 3.8 Chloride 106 Carbon Dioxide 30 BUN 23 H Creatinine 0.94 Glucose 166 H Calcium 8.3 L Cardiac Enzymes 09/26/24 Range/Units 01:26 Troponin I < 0.012 (0.000-0.034) ng/mL Liver Function 09/26/24 Range/Units 01:26 Total Bilirubin 0.4 (0.2-1.3) mg/dL AST 25 (17-59) U/L ALT 24 (6-50) U/L Alkaline Phosphatase 84 (38-126) U/L Albumin 3.6 (3.5-5.1) g/dL Assessment and Plan Assessment and plan (1) Essential (primary) hypertension: Code(s): I10 - Essential (primary) hypertension Status: Acute (2) Diastolic dysfunction: Code(s): I51.89 - Other ill-defined heart diseases Status: Acute (3) Hyperlipemia: Code(s): E78.5 - Hyperlipidemia, unspecified Status: Acute (4) CVA (cerebrovascular accident): Code(s): I63.9 - Cerebral infarction, unspecified Status: Acute Plan patient is a poor historian does not provide detail history states his sent him to emergency department as patient had been confused and had trouble with balance, even has employer also noticed decrease in physical activity, upon arrival patient blood pressure was emergently elevated and patient was hydralazine in the ER, currently patient denies any chest pain, shortness of breath, dizziness or headache, to further evaluate CTA of the head and MRI of the brain is ordered, MRI of the brain showed focal acute infarct involving the anterior portion of the right thalamus patient was given aspirin 325 mg x 1, will start the patient on aspirin 81 mg q.day patient had been taking Lipitor 10 mg q.day will increase it to 40 mg q.day and have PT OT evaluate the patient and further recommendation to follow, patient blood pressure is trending down will resume his home medication lisinopril 10 mg q.day and monitor patient blood pressure for next 48 hours before adjusting his blood pressure medications. Will start the patient on clear liquid and monitor advanced as tolerated. Quality VTE Prophylaxis VTE prophylaxis: pharmacologic ordered Hospitalist MIPS Advance Care Plan I have confirmed that the patient's Advanced Care Plan is present, code status is documented, or surrogate decision maker is listed in patient medical record.: Yes Medication Reconciliation I have utilized all available resources to obtain, update and review the patients current medications (includes all prescriptions, OTC, herbals, cannabis, and nutritional supplements).: Yes
--- NOTE | 2024-09-26 16:00 | PCRCNOTE ---
I talked with the patient about wearing a cpap. Pt stated that he does not want one. He said that he had a CPAP at home a few years ago and wore it off and on for a year. He said he hasn't wore it at all in the last year. He stated that he does not want one of ours and will also not wear his from home either.
[2024-09-26] MEDS: ENOXAPARIN 40 MG/0.4 ML SYRINGE SUB-Q (18:14)
[2024-09-26] MEDS: lisinopriL 10 MG TABLET PO (21:03)
[2024-09-26] MEDS: ATORVASTATIN 40 MG TABLET PO (21:03)
[2024-09-27] VITALS: PULSE 74
[2024-09-27 04:00] VITALS: PULSE 54
[2024-09-27 06:00] VITALS: BP 126/69; PULSE 61; RESP 18; TEMP 36.4; O2SAT 98
[2024-09-27 08:00] VITALS: PULSE 61; O2SAT 98
--- NOTE | 2024-09-27 08:44 | PM.DS ---
DS: Admitting Diagnosis Discharge Date 09/27/24 Admitting Diagnosis Elevated BP and confusion DS: Discharge Diagnosis Discharge Diagnosis (1) Essential (primary) hypertension: Code(s): I10 - Essential (primary) hypertension Status: Acute (2) Diastolic dysfunction: Code(s): I51.89 - Other ill-defined heart diseases Status: Acute (3) Hyperlipemia: Code(s): E78.5 - Hyperlipidemia, unspecified Status: Acute (4) CVA (cerebrovascular accident): Code(s): I63.9 - Cerebral infarction, unspecified Status: Acute DS: Summary Hospital Course Hospital Course: patient is a poor historian does not provide detail history states his sent him to emergency department as patient had been confused and had trouble with balance, even has employer also noticed decrease in physical activity, upon arrival patient blood pressure was emergently elevated and patient was hydralazine in the ER, currently patient denies any chest pain, shortness of breath, dizziness or headache, to further evaluate CTA of the head and MRI of the brain is ordered, MRI of the brain showed focal acute infarct involving the anterior portion of the right thalamus patient was given aspirin 325 mg x 1, will start the patient on aspirin 81 mg q.day patient had been taking Lipitor 10 mg q.day will increase it to 40 mg q.day and have PT OT evaluate the patient and further recommendation to follow, patient blood pressure is trending down will resume his home medication lisinopril 10 mg q.day and monitor patient blood pressure for next 48 hours before adjusting his blood pressure medications. Will start the patient on clear liquid and monitor advanced as tolerated MRI of the brain showed focal acute infarct involving the anterior portion of the right thalamus patient was given aspirin 325 mg x 1, will start the patient on aspirin 81 mg q.day patient had been taking Lipitor 10 mg q.day will increase it to 40 mg q.day. patient remains clinically stable, has no new complaints, I called patient primary care provider and gave update about the patient and patient will be seen in the clinic as soon as possible, patient is present in the room answer all her questions. Time Spent with Patient Time attestation: Total time spent providing and/or coordinating discharge services: Exam Narrative: Patient is comfortable, NA, patient has a normal speech HEENT: eyes are clear and none icteric, there is facial symmetry LUNGS:CTA HEART: RR S1S2 ABD: BS+, Soft and nontender Lower extremities: no edema MS: Upper and lower extremities power and strength bilaterally symmetrical and 5/5 SKIN: nonjaundiced Neuro: grossly intact. Discharge Plan Discharge Attending physician on discharge: Lisbet Henry Consulting providers: Kavin Quintana; Cyn Crespo; Henry Jiménez Discharging Clinician: Olga Chadwick Patient Disposition: Home, Self-Care Activity: as tolerated Diet: heart healthy Discharge Instructions: patient to follow with his primary care provider as soon as possible, patient is instructed if any symptom redevelop or worsen to go to nearest ER. Patient Instructions: Antibiotic Form, Stroke (GEN) Patient Language: Bangladeshi Stand Alone Forms: General Discharge Information Follow-up/Referrals: Chanelle Ho, [Primary Care Provider] - Discharge Medications: New aspirin 81 mg Tablet,Delayed Release (Dr/Ec) 81 mg PO QAM Qty: 30 0RF atorvastatin 40 mg Tablet 40 mg PO QHS Qty: 30 0RF Continued lisinopril 10 mg tablet 10 mg PO HS Discontinued atorvastatin 10 mg tablet 10 mg PO QHS Qty: 90 1RF No Action nicotine (polacrilex) 4 mg gum 4 mg buccal Q2H Qty: 100 5RF Date of admission: 09/26/24 05:25 Primary Care Provider: Chanelle Ho Admitting Provider: Lisbet Henry Attending physician on admission: Olga Chadwick Condition: Stable
--- OUTSIDE RECORDS SUMMARY | 2024-09-30 09:44 | XMS_ITS | Referral Summary ---
Author Organization [facility] Address [address] [place] [address] Care Team Providers Care Executive Associate Name Role Phone Twan Bowen MD Primary Care Provider [phone] Source Comments [facility],non-owned Affiliates and Associated Physician Practices is amultiple site organization consisting of ambulatory clinics and hospital sitesin [place], [place], [place] and [place]. This disclosure is being madepursuant to the Care Everywhere program and may not contain all information available regarding this patient. Last updated 18.[facility] Allergies No known active allergies Medications * Be aware that medications may not be up to date on this document. Alwaysverify current medications with the patient. Medication Sig Dispensed Refills Start Date End Date Status HYDROcodone-acetam inophen (NORCO) 5-325 MG tablet Take 1 tablet by mouth every 4 hours as needed for Pain Active omeprazole (PRILOSEC) 40 MG capsule Take 40 mg by mouth daily before breakfast Active rosuvastatin (CRESTOR) 10 MG tablet Take 10 mg by mouth once daily Active zolpidem (AMBIEN) 10 MG tablet Take 10 mg by mouth nightly as needed for Insomnia Active vitamin D, ergocalciferol, (DRISDOL) 56816 UNITS capsule Take 50,000 Units by mouth every 7 days On Friday Active hyoscyamine 0.125 MG tablet Take 0.125 mg by mouth 3 times daily as needed for Spasms Active docusate sodium (COLACE) 100 MG capsule Take 100 mg by mouth 2 times daily as needed for Constipation Active cyanocobalamin (VITAMIN B-12) 100 MCG tablet Take 100 mcg by mouth once daily Active polyethylene glycol 3350 (MIRALAX) packet Take 17 g by mouth 2 times daily 02/13/2018 Active fentaNYL (DURAGESIC) 25 MCG/HR patch Apply 1 patch to skin every 3 days Do not apply heat over patch. 5 patch 02/14/2018 Active amitriptyline (ELAVIL) 50 MG tablet Take 1 tablet by mouth at bedtime 30 tablet 11 02/13/2018 Active amLODIPine (NORVASC) 10 MG tablet Take 1 tablet by mouth once daily 30 tablet 11 02/14/2018 Active gabapentin (NEURONTIN) 600 MG tablet Take 600 mg by mouth as needed 08/19/2021 Active lisinopril (PRINIVIL; ZESTRIL) 10 MG tablet Take 10 mg by mouth once daily 12/17/2021 Active metFORMIN ER 24hr (GLUCOPHAGE XR) 500 MG tablet Take 1,000 mg by mouth 2 times daily 12/17/2021 Active Active Problems Problem Noted Date Diagnosed Date Leukemoid reaction 05/09/2021 Abdominal pain 02/10/2018 Early satiety 12/17/2017 Weight loss 12/17/2017 Immunizations Name Administration Dates Next Due Yaritza Receptos primary monoval ent 12+ yr 0.3mL Purple cap 07/27/2021,12/29/2020,12/08/2020 INFLUENZA VACCINE 07/27/2021 Social History Tobacco Use Types Packs/Day Years Used Date Smoking Tobacco: Every Day Cigarettes 1 30 Smokeless Tobacco: Never Tobacco Cessation:Ready to Q uit: Yes; Counseling Given: Yes Alcohol Use Standard Drinks/Week Comments No 0 (1 standard drink = 0.6 oz pur e alcohol) Sex and Gender Information Value Date Recorded Sex Assigned at Not on file Gender Identity Male 02/10/2018 10:07 PM CDT Sexual Orientation Not on file Last Filed Vital Signs Vital Sign Reading Time Taken Comments Blood Pressure 129/83 02/13/2018 12:23 PM CDT Pulse 74 02/13/2018 12:23 PM CDT Temperature 36.8 ??C (98.3 ??F) 02/13/2018 12:23 PM C DT Respiratory Rate 18 02/13/2018 12:23 PM CDT Oxygen Saturation 98% 02/13/2018 12:23 PM CDT Inhaled Oxygen Concentration - - Weight 90.8 kg (200 lb 3.2 oz) 12/25/2021 11:08 AM CDT Height 182.9 cm (6') 12/25/2021 11:08 AM CDT Body Mass Index 27.15 12/25/2021 11:08 AM CDT Functional Status Functional Status Response Date of Assess ment Is person deaf or have serious hearing difficult y? No 02/10/2018 Is person blind or have serious difficulty seein g? No 02/10/2018 Does person have serious dif ficulty walking/climbing stairs? No 02/10/2018 Does person have difficulty dressing/bathing? No 02/10/2018 Does person have difficulty doing errands alone? No 02/10/2018 Cognitive Status Response Date of Assessm ent Does person have difficulty concentrating/remembering/making decisions? No 02/10/2018 Plan of Treatment Not on file Procedures Procedure Name Priority Date/Time Associated Diagnosis Comments GLUCOSE - POINT OF CARE Routine 02/13/2018 12:35 AM CDT from Last 3 Months or Most Recently Relevant to Health Maintenance Results * (ABNORMAL) GLUCOSE - POINT OF CARE (02/13/2018 12:35 AM CDT) Glucose WB/POC 173(H) 70 - 115 mg/dL 02/13/2018 12:52 AM CDT [facility] Specimen Type Arterial/C apillary 02/13/2018 12:52 AM CDT [facility] Blood BLOOD SPECIMEN / Unknown 02/13/2018 12:35 AM CDT 02/13/2018 12:52 AM CDT Narrative [facility] - 02/13/2018 12:52 AM CDT Fsr: GRANGER ??MOHAN Ronny Menjivar MD LAB - POINT OF CARE ORDERABLES [address] [phone] from Last 3 Months or Most Recently Relevant to Health Maintenance Advance Directives * Full Code (Latest Code Status on File) Date Activated Date Inactivated Comments 02/10/2018 9:47 PM 02/13/2018 4:41 PM Care Teams Executive Associate Relationship Specialty Start Date End Date Twan Bowen MD [address] [place] [address] PCP - General 02/13/18
--- OUTSIDE RECORDS SUMMARY | 2024-09-30 09:44 | XMS_ITS | Patient Health Summary ---
Author Organization [facility] [employer] Address [address] [place] [place] [address] Care Team Providers Care Compliance Director Name Role Phone Twan Bowen MD Primary Care Provider [phone] Note from [facility],non-owned Affiliates and Associated Physician Practices is amultiple site organization consisting of ambulatory clinics and hospital sitesin [place], [place], [place] and [place]. This disclosure is being madepursuant to the Care Everywhere program and may not contain all information available regarding this patient. Last updated 18.[facility] Allergies No known active allergies Medications * Be aware that medications may not be up to date on this document. Alwaysverify current medications with the patient. * HYDROcodone-acetaminophen (NORCO) 5-325 MG tablet Take 1 tablet by mouth every 4 hours as needed for Pain * omeprazole (PRILOSEC) 40 MG capsule Take 40 mg by mouth daily before breakfast * rosuvastatin (CRESTOR) 10 MG tablet Take 10 mg by mouth once daily * zolpidem (AMBIEN) 10 MG tablet Take 10 mg by mouth nightly as needed for Insomnia * vitamin D, ergocalciferol, (DRISDOL) 51421 UNITS capsule Take 50,000 Units by mouth every 7 days On Friday * hyoscyamine 0.125 MG tablet Take 0.125 mg by mouth 3 times daily as needed for Spasms * docusate sodium (COLACE) 100 MG capsule Take 100 mg by mouth 2 times daily as needed for Constipation * cyanocobalamin (VITAMIN B-12) 100 MCG tablet Take 100 mcg by mouth once daily * polyethylene glycol 3350 (MIRALAX) packet(Started 02/13/2018) Take 17 g by mouth 2 times daily * fentaNYL (DURAGESIC) 25 MCG/HR patch(Started 02/14/2018) Apply 1 patch to skin every 3 days Do not apply heat over patch. * amitriptyline (ELAVIL) 50 MG tablet(Started 02/13/2018) Take 1 tablet by mouth at bedtime 11 refills remaining * amLODIPine (NORVASC) 10 MG tablet(Started 02/14/2018) Take 1 tablet by mouth once daily 11 refills remaining * gabapentin (NEURONTIN) 600 MG tablet(Started 08/19/2021) Take 600 mg by mouth as needed * lisinopril (PRINIVIL; ZESTRIL) 10 MG tablet(Started 12/17/2021) Take 10 mg by mouth once daily * metFORMIN ER 24hr (GLUCOPHAGE XR) 500 MG tablet(Started 12/17/2021) Take 1,000 mg by mouth 2 times daily Active Problems Problem Noted Date Diagnosed Date Leukemoid reaction 05/09/2021 Abdominal pain 02/10/2018 Early satiety 12/17/2017 Weight loss 12/17/2017 Immunizations * Covid Pfizer primary monovalent 12+ yr 0.3mL Purple cap(Given 07/27/2021, 12/29/2020, 12/08/2020) * INFLUENZA VACCINE(Given 07/27/2021) Social History Tobacco Use Types Packs/Day Years [...] Mass Index 27.15 12/25/2021 11:08 AM CDT Procedures * MS LARYNGOSCOPY,FLEX FIBER,DIAGNOSTIC(Performed 12/25/2021) Performed for Nasal septal deviation, TIA (obstructive sleep apnea), Nasal congestion * GLUCOSE - POINT OF CARE(Performed 02/13/2018) * GLUCOSE - POINT OF CARE(Performed 02/13/2018) * GLUCOSE - POINT OF CARE(Performed 02/13/2018) * GLUCOSE - POINT OF CARE(Performed 02/12/2018) * GLUCOSE - POINT OF CARE(Performed 02/12/2018) * AMINOLEVULINIC ACID URINE TIMED(Performed 02/12/2018) Performed for Abdominal pain, unspecified abdominal location * PORPHYRINS URINE QUANT RANDOM(Performed 02/12/2018) Performed for Abdominal pain, unspecified abdominal location * GLUCOSE - POINT OF CARE(Performed 02/12/2018) * GLUCOSE - POINT OF CARE(Performed 02/11/2018) * GLUCOSE - POINT OF CARE(Performed 02/11/2018) * LACTIC ACID BLOOD(Performed 02/11/2018) Performed for Abdominal pain, unspecified abdominal location * C-REACTIVE PROTEIN(Performed 02/11/2018) Performed for Abdominal pain, unspecified abdominal location * ERYTHROCYTE SEDIMENTATION RATE(Performed 02/11/2018) Performed for Right upper quadrant abdominal pain * CANCER ANTIGEN (CA) 19-9(Performed 02/11/2018) Performed for Right upper quadrant abdominal pain * LIPASE BLOOD(Performed 02/11/2018) Performed for Right upper quadrant abdominal pain * US ABDOMEN LIMITED(Performed 02/11/2018) Performed for Right upper quadrant abdominal pain * METANEPHRINES FRACTIONATED PLASMA(Performed 02/11/2018) Performed for Abdominal pain, unspecified abdominal location * [place] ANTIBODY B PANEL(Performed 02/11/2018) Performed for Abdominal pain, unspecified abdominal location * HEMOGLOBIN A1C(Performed 02/11/2018) Performed for Abdominal pain, unspecified abdominal location * MAGNESIUM BLOOD(Performed 02/11/2018) Performed for Abdominal pain, unspecified abdominal location * BASIC METABOLIC PANEL (CALCIUM TOTAL)(Performed 02/11/2018) Performed for Abdominal pain, unspecified abdominal location * CBC W/O DIFFERENTIAL(Performed 02/11/2018) Performed for Abdominal pain, unspecified abdominal location * URINALYSIS W/MICROSCOPIC NO CULTURE(Performed 02/11/2018) Performed for Abdominal pain, unspecified abdominal location * LACTIC ACID BLOOD(Performed 02/10/2018) Performed for Abdominal pain, unspecified abdominal location * VITAMIN B12(Performed 02/10/2018) Performed for Abdominal pain, unspecified abdominal location * TSH(Performed 02/10/2018) Performed for Abdominal pain, unspecified abdominal location * CBC W AUTO DIFFERENTIAL(Performed 02/10/2018) Performed for Abdominal pain, unspecified abdominal location * COMPREHENSIVE METABOLIC PANEL(Performed 02/10/2018) Performed for Abdominal pain, unspecified abdominal location * PHOSPHORUS BLOOD(Performed 02/10/2018) Performed for Abdominal pain, unspecified abdominal location * MAGNESIUM BLOOD(Performed 02/10/2018) Performed for Abdominal pain, unspecified abdominal location * PT-INR [facility](Performed 02/10/2018) Performed for Abdominal pain, unspecified abdominal location Results * MS LARYNGOSCOPY,FLEX FIBER,DIAGNOSTIC (12/25/2021 12:25 PM CDT) Narrative Cameron Shaw MD - 12/25/2021 12:25 PM CDT Cameron Shaw MD ? 12/25/2021 12:30 PM Procedure Note Anesthesia: Lidocaine 2% and Hector-Synephrine 1/2% Endoscopy Type: ??Flexible Wvafu-Hacpnisrxpjyvx-Dlshkcyxbotg Procedure Details: Informed consent was obtained. ??The patient was placed in the sitting position. ??After topical anesthesia and decongestion, the 4 mm laryngoscope was passed. ??The nasal cavities, nasopharynx, oropharynx, hypopharynx, and larynx were all examined. ??Vocal cords were examined during respiration and phonation. ??This was repeated with the patient supine. ??The following findings were noted: ??Moderate L septal deviation, otherwise normal nasal cavity. ??Adenoids obstructing 5% of postnasal space (normal less than 40%). ??Moderate guarding, but good mobility with jaw thrust at the level of the palate and retroglossal airway. 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 ??Otherwise normal nasopharynx, oropharynx, hypopharynx, and larynx. ??Good TVC mobility bilaterally. ?? The patient tolerated procedure well. Complications: None For all procedures, attending was present and performed the malcolm portions of the procedure. Gold Tu Schwarz PHARMACEUTICAL WORKER-OCEAN BIOLOGIST PROCEDURE/ MINOR SURGICAL ORDERABLES * (ABNORMAL) GLUCOSE - POINT OF CARE (02/13/2018 12:25 PM CDT) Only the most recent of8 resultswithin the time period is included. Glucose WB/POC 132(H) 70 - 115 mg/dL 02/13/2018 12:41 PM CDT [facility] Specimen Type Arterial/C apillary 02/13/2018 12:41 PM CDT [facility] Blood BLOOD SPECIMEN / Unknown 02/13/2018 12:25 PM CDT 02/13/2018 12:41 PM CDT Narrative [facility] - 02/13/2018 12:41 PM CDT Social Work Professor: RADHA ??JESSICA Billy Hauser MD LAB - POINT OF CARE ORDERABLES [address] [phone] * PORPHYRINS URINE QUANT RANDOM (02/12/2018 8:58 AM CDT) Uroporphyrin Timed Urine 4 0 - 20 ug/L 02/18/2018 11:19 AM CDT [facility] ([facility]) Heptacarboxyl 2 0 - 2 ug/L 02/18/2018 11:19 AM CDT [facility] ([facility]) Hexacarboxyl ug/L <1 0 - 1 ug/L 018 11:19 AM CDT [facility] ([facility]) Pentacarboxyl <1 0 - 2 ug/L 02/18/2018 11:19 AM CDT [facility] ([facility]) Coproporphyrin I 11 0 - 15 ug/L 02/18/2018 11:19 AM CDT [facility] ([facility]) Coproporphyrin III 34 0 - 49 ug/L 02/18/2018 11:19 AM CDT [facility] ([facility]) Urine URINE / Unknown Collection / Unknown 02/12/2018 8:58 AM CDT 02/12/2018 9:16 AM CDT Narrative [facility] ([facility]) - 02/18/2018 11:19 AM CDT Performed at: ??01 - [address] ??[id number] Management Manager: Lawrence Kelley MD, Phone: ??[phone] Ronny Menjivar MD LAB - URINE CHEMISTR Y ORDERABLES Performing Organization Address [facility] Co de Phone Number [facility] ([facility]) [address] [place] [address], [facility] * (ABNORMAL) AMINOLEVULINIC ACID URINE TIMED (02/12/2018 8:58 AM CDT) Delta ALA Urine 0.2 Undefined mg/L 02/16/2018 4:18 PM CDT [facility] ([facility]) Delta ALA 24 Hour Urine 0.4(L) 0.5 - 5.1 mg/24 hr 02/16/2018 4:18 PM CDT [facility] ([facility]) Comment: This test was developed and its performance characteristics determined by [facility]. It has not been cleared or approved by the Food and Drug Administration. Urine URINE / Unknown Collection / Unknown 02/12/2018 8:58 AM CDT 02/12/2018 9:16 AM CDT Narrative [facility] ([facility]) - 02/16/2018 4:18 PM CDT Performed at: ??01 - [address] ??[id number] Management Manager: Lawrence Kelley MD, Phone: ??[phone] Ronny Menjivar MD LAB - URINE CHEMISTR Y ORDERABLES Performing Organization Address [facility] Co de Phone Number [facility]) [address] [place] [address], [facility] [place] * C-REACTIVE PROTEIN (02/11/2018 1:41 PM CDT) C-Reactive Protein <0.5 <=0.5 mg/dL 02/11/2018 2:12 PM CDT [facility] Blood BLOOD SPECIMEN / Unknown Lab Venipuncture / Unknown 02/11/2018 1:41 PM CDT 02/11/2018 1:44 PM CDT Ronny Menjivar MD LAB - CHEMISTRY ALESSIA WADE Performing Organization Address City/[facility]/ZIP Co de Phone Number [address] [phone] * CANCER ANTIGEN (CA) 19-9 (02/11/2018 1:41 PM CDT) [facility] CA 19-9 9.320 <35.000 U/mL 02/11/2018 2:20 PM CDT [facility] Comment: CA 19-9 values will vary depending on testing procedure used. Results are not comparable across different methods. CA 19-9 values obtained in [facility] using a Sherry Temitope Immunoassay. Blood BLOOD SPECIMEN / Unknown Lab Venipuncture / Unknown 02/11/2018 1:41 PM CDT 02/11/2018 1:44 PM CDT Ronny Menjivar MD LAB - CHEMISTRY ALESSIA WADE Performing Organization Address City/[facility] Co de Phone Number [address] [phone] * ERYTHROCYTE SEDIMENTATION RATE (02/11/2018 1:41 PM CDT) [facility] Erythrocyte Sedimentation Rate Westergren 12 0 - 20 MM/HR 02/11/2018 1:56 PM CDT [facility] Blood BLOOD SPECIMEN / Unknown Lab Venipuncture / Unknown 02/11/2018 1:41 PM CDT 02/11/2018 1:44 PM CDT Ronny Menjivar MD LAB - HEMATOLOGY LINDEN WALSH [address] [phone] * (ABNORMAL) LIPASE BLOOD (02/11/2018 1:41 PM CDT) Lipase <4(L) 8 - 78 Units/L 02/11/2018 2:09 PM CDT [facility] Blood BLOOD SPECIMEN / Unknown Lab Venipuncture / Unknown 02/11/2018 1:41 PM CDT 02/11/2018 1:44 PM CDT Ronny Menjivar MD LAB - CHEMISTRY ALESSIA JOELALICJA [address] [phone] * LACTIC ACID BLOOD (02/11/2018 1:41 PM CDT) Only the most recent of2 resultswithin the time period is included. Lactic Acid-Stat 1.1 0.5 - 2.2 mmol/L 02/11/2018 2:00 PM CDT [facility] Blood BLOOD SPECIMEN / Unknown Lab Venipuncture / Unknown 02/11/2018 1:41 PM CDT 02/11/2018 1:43 PM CDT Ronny Menjivar MD LAB - CHEMISTRY ALESSIA WADE [address] [phone] * US ABDOMEN LIMITED (02/11/2018 10:13 AM CDT) Anatomical Region Laterality Modality Abdomen Ultrasound 02/11/2018 10:4 9 AM CDT Impressions 02/11/2018 3:49 PM CDT IMPRESSION: 1. No discrete hepatic lesion or intrahepatic biliary ductal dilatation. 2. No evidence of cholelithiasis or cholecystitis. Dictated by Michael Vieyra MD (resident care technician). This report was approved ??by Michael Vieyra ?? on 02/11/2018 10:51 AM . I, Dr. MACARIO FRENCH M.D. have personally reviewed and interpreted this examination/study. This report was electronically signed by MACARIO FRENCH M.D. ??on 02/11/2018 3:49 PM . Narrative 02/11/2018 3:49 PM CDT EXAMINATION: Limited right upper quadrant abdominal sonogram HISTORY: Right upper quadrant pain COMPARISON: No prior study is available for comparison. FINDINGS: The liver is normal in echotexture and echogenicity with smooth surface contour. No discrete hepatic mass or intrahepatic biliary dilatation is seen. No gallstones or pericholecystic fluid is seen. The gallbladder wall is normal in thickness, measuring 2 mm. Sonographic Calixto's sign is negative. The common bile duct is nondilated, measuring 4 mm. The right kidney measures 12.7 cm. Limited views of the right kidney reveal no evidence of nephrolithiasis or hydronephrosis. The spleen measures 9.7 cm in length. The visible pancreas is normal in echogenicity. No ascites is present. Procedure Note Macario French MD - 02/11/2018 EXAMINATION: Limited right upper quadrant abdominal sonogram HISTORY: Right upper quadrant pain COMPARISON: No prior study is available for comparison. FINDINGS: The liver is normal in echotexture and echogenicity with smooth surface contour. No discrete hepatic mass or intrahepatic biliary dilatation is seen. No gallstones or pericholecystic fluid is seen. The gallbladder wall is normal in thickness, measuring 2 mm. Sonographic Calixto's sign is negative. The common bile duct is nondilated, measuring 4 mm. The right kidney measures 12.7 cm. Limited views of the right kidney reveal no evidence of nephrolithiasis or hydronephrosis. The spleen measures 9.7 cm in length. The visible pancreas is normal inechogenicity. No ascites is present. IMPRESSION: 1. No discrete hepatic lesion or intrahepatic biliary ductal dilatation. 2. No evidence of cholelithiasis or cholecystitis. Dictated by Michael Vieyra MD (resident care technician). This report was approved by Michael Vieyra on 02/11/2018 10:51 AM . I, Dr. MACARIO FRENCH M.D. have personally reviewed and interpretedthis examination/study. This report was electronically signed by MACARIO FRENCH M.D. on02/11/2018 3:49 PM . Ronny Menjivar MD US ORDERABLES * METANEPHRINES FRACTIONATED PLASMA (02/11/2018 4:22 AM CDT) Normetanephrine 58 0 - 145 pg/mL 02/13/2018 8:12 PM CDT [facility] ([facility]) Metanephrine 23 0 - 62 pg/mL 02/13/2018 8:12 PM CDT [facility] ([facility]) Comment: Concentrations of Normetanephrine between 146 and 487 pg/mL, and Metanephrine between 63 and 255 pg/mL are considered indeterminate. Follow-up biochemical testing is recommended when patient levels fall within this indeterminate range. These tests include repeat testing of plasma/urinary fractionated metanephrines and plasma catecholamines. Blood BLOOD SPECIMEN / Unknown Venipuncture / Unknown 02/11/2018 4:22 AM CDT 02/11/2018 4:42 AM CDT [facility]) - 02/13/2018 8:12 PM CDT Performed at: ??01 - [facility] ??[id number] Management Manager: Lawrence Kelley MD, Phone: ??[phone] Joseph Miller MD LAB - CHEMISTRY ALESSIA WADE [facility] Organization Address City/State/ZIP Co de Phone Number [facility] ([facility]) [address] [place] [address], [facility] * (ABNORMAL) [place] ANTIBODY B PANEL (02/11/2018 4:20 AM CDT) Pathologist [facility] [place] B-1 Antibody 1:16(H) Neg:<1:8 02/13/2018 10:07 PM CDT [facility] ([facility]) [place] B-2 Antibody 1:8(H) Neg:<1:8 02/13/2018 10:07 PM CDT [facility] ([facility]) [place] B-3 Antibody 1:8(H) Neg:<1:8 02/13/2018 10:07 PM CDT [facility] ([facility]) [place] B-4 Antibody 1:8(H) Neg:<1:8 02/13/2018 10:07 PM CDT [facility] ([facility]) [place] B-5 Antibody 1:16(H) Neg:<1:8 02/13/2018 10:07 PM CDT [facility] ([facility]) [place] B-6 Antibody 1:32(H) Neg:<1:8 02/13/2018 10:07 PM CDT [facility] ([facility]) Blood BLOOD SPECIMEN / Unknown Venipuncture / Unknown 02/11/2018 4:20 AM CDT 02/11/2018 4:42 AM CDT Narrative [facility] ([facility]) - 02/13/2018 10:07 PM CDT Performed at: ??01 - [facility] ??[id number] Management Manager: Lawrence Kelley MD, Phone: ??[phone] Joseph Miller MD LAB - SEROLOGY ORDER DIVYA [facility]) [address] [id number] * (ABNORMAL) HEMOGLOBIN A1C (02/11/2018 4:20 AM CDT) Hemoglobin A1c 6.8(H) 4.4 - 6.3 % 02/11/2018 9:24 AM CDT [facility] Estimated Average Glucose 148 mg/dL 02/11/2018 9:24 AM CDT [facility] Comment: HbA1c Interpretation: Treatment target values recommended by ADA and other clinical organizations should be used to evaluate metabolic control in patients. Treatment Target Values: Normal : < 5.7% Pre-diabetes: 5.7-6.4% Diabetes: Equal to or greater than 6.5% Reference: [place] Diabetes Association Standards of Care in Diabetes -2014 In patients 70 years and older consider HbA1c target range of 7.0-7.5% Reference: ??Diabetes Mellitus in Older People: Position Statement on behalf of the International Association of Gerontology and Geriatrics (IAGG), the Diabetes Working Libertarian for Older People (EDWPOP), and the International Task Force of Experts in Diabetes. ??Francisco J Rendon et al. J [place] Medical Directors Association. 2012 Test results diagnostic of diabetes should be repeated for confirmation. The Tosoh G8 assay for the measurement of HbA1c is a National Glycohemoglobin Standardization Program (NGSP)certified method. Results for patients with HbE disease should be interpreted with caution as this hemoglobinopathy has been shown to interfere with the Tosoh G8 assay. Whole Blood BLOOD SPECIMEN WITH EDTA / Unknown Venipuncture / Unknown 02/11/2018 4:20 AM CDT 02/11/2018 4:42 AM CDT Joseph Miller MD LAB - CHEMISTRY ALESSIA WADE [facility] Organization Address City/State/ZIP Co de Phone Number [facility] [address] [place] [address] * CBC W/O DIFFERENTIAL (02/11/2018 4:20 AM CDT) WBC 10.4 3.5 - 10.5 10? 3 /uL 02/11/2018 4:57 AM [facility] RBC 4.58 4.30 - 5.70 10? 6 /uL 02/11/2018 4:57 AM [facility] Hemoglobin 13.6 13.5 - 17.5 g/dL 02/11/2018 4:57 AM [facility] Hematocrit 39.4 39.0 - 50.0 % 02/11/2018 4:57 AM [facility] MCV 86.0 81.0 - 97.0 fL 02/11/2018 4:57 AM [facility] MCH 29.7 28.0 - 34.0 pg 02/11/2018 4:57 AM [facility] MCHC 34.5 32.0 - 36.0 g/dL 02/11/2018 4:57 AM [facility] Platelet Count 276 150 - 400 10? 3 /uL 02/11/2018 4:57 AM [facility] RDW-SD 40.9 36.0 - 50.0 fL 02/11/2018 4:57 AM [facility] RDW-CV 12.9 11.2 - 14.8 % 02/11/2018 4:57 AM [facility] MPV 11.6 9.3 - 12.8 fL 02/11/2018 4:57 AM [facility] Blood BLOOD SPECIMEN / Unknown Venipuncture / Unknown 02/11/2018 4:20 AM CDT 02/11/2018 4:42 AM CDT Joseph Miller MD LAB - HEMATOLOGY ORD ERABLES [facility] [address] [phone] * (ABNORMAL) BASIC METABOLIC PANEL (CALCIUM TOTAL) (02/11/2018 4:20 AM CDT) BUN 8 7 - 26 mg/dL 02/11/2018 5:06 AM [facility] Creatinine 0.7 0.6 - 1.2 mg/dL 02/11/2018 5:06 AM [facility] Sodium 140 136 - 145 mmol/L 02/11/2018 5:06 AM [facility] Potassium 3.1(L) 3.5 - 4.5 mmol/L 02/11/2018 5:06 AM [facility] Chloride 104 98 - 107 mmol/L 02/11/2018 5:06 AM [facility] CO2 26 22 - 29 mmol/L 02/11/2018 5:06 AM [facility] Glucose 142(H) 70 - 115 mg/dL 02/11/2018 5:06 AM [facility] Calcium 9.1 8.4 - 10.2 mg/dL 02/11/2018 5:06 AM [facility] Anion Gap 13 8 - 18 02/11/2018 5:06 AM [facility] BUN/Creatinine Ratio 11 7 - 23 02/11/2018 5:06 AM [facility] Osmolality Calculated 291 270 - 300 mOsm/kg 02/11/2018 5:06 AM [facility] eGFR >60 >60 mL/min/1.7 3 m2 02/11/2018 5:06 AM [facility] Blood BLOOD SPECIMEN / Unknown Venipuncture / Unknown 02/11/2018 4:20 AM CDT 02/11/2018 4:42 AM CDT Joseph Miller MD LAB - CHEMISTRY ALESSIA WADE Performing Organization Address [facility]/State/ZIP Co de Phone Number [address] [phone] * MAGNESIUM BLOOD (02/11/2018 4:20 AM CDT) Only the most recent of2 resultswithin the time period is included. Magnesium 1.9 1.6 - 2.6 mg/dL 02/11/2018 5:06 AM T [facility] Blood BLOOD SPECIMEN / Unknown Venipuncture / Unknown 02/11/2018 4:20 AM CDT 02/11/2018 4:42 AM CDT Joseph Miller MD LAB - CHEMISTRY ALESSIA WADE Performing Organization Address [facility] Co de Phone Number [address] [phone] * URINALYSIS W/MICROSCOPIC NO CULTURE (02/11/2018 1:28 AM CDT) Color UA Yellow Straw, Yellow, Colorless, Light Yellow 02/11/2018 1:39 AM [facility] Clarity UA Clear Clear 02/11/2018 1:39 AM [facility] Specific [place] UA 1.016 1.001 - 1.030 02/11/2018 1:39 AM [facility] pH UA 7.0 5.0 - 8.0 02/11/2018 1:39 AM [facility] Protein UA Negative <=20 mg/dL 02/11/2018 1:39 AM [facility] Glucose UA Negative Negative mg/dL 02/11/2018 1:39 AM [facility] Ketone UA Negative Negative mg/dL 02/11/2018 1:39 AM [facility] Bilirubin UA Negative Negative mg/dL 02/11/2018 1:39 AM [facility] Blood UA Negative Negative 02/11/2018 1:39 AM [facility] Nitrite UA Negative Negative 02/11/2018 1:39 AM [facility] Leukocyte Esterase Negative Negative 02/11/2018 1:39 AM [facility] Urobilinogen UA <2.0 <2.0 mg/dL 8 1:39 AM [facility] RBC UA 1 0 - 8 /HPF 02/11/2018 1:39 AM [facility] WBC UA <1 0 - 2 /HPF 02/11/2018 1:39 AM [facility] Urine URINE SPECIMEN OBTAINED BY CLEAN CATCH PROCEDURE / Unknown Collection / Unknown 02/11/2018 1:28 AM CDT 02/11/2018 1:28 AM CDT Joseph Miller MD LAB - URINALYSIS ORD ERABLES Performing Organization Address [facility] Co de Phone Number [address] [phone] * PT-INR [facility] (02/10/2018 10:01 PM CDT) PT 13.2 12.1 - 14.8 Seconds 02/10/2018 10:14 PM [facility] INR 1.0 See Comment 02/10/2018 10:14 PM [facility] Comment: Suggested therapeutic range for low-intensity coumadin therapy for venous thromboembolism prophylaxis is an INR of 2.0-3.0. ??For high risk patients (Mitral Valve Prosthesis, Atrial Fibrillation, history of TIA/stroke), suggested prophylactic therapeutic range is an INR of 2.5-3.5. Blood BLOOD SPECIMEN / Unknown Lab Venipuncture / Unknown 02/10/2018 10:01 PM CDT 02/10/2018 10:01 PM CDT Joseph Miller MD LAB - COAGULATION OR DERABLES Performing Organization Address [facility] Co de Phone Number [address] [phone] * (ABNORMAL) CBC W AUTO DIFFERENTIAL (02/10/2018 10:01 PM CDT) WBC 10.2 3.5 - 10.5 10? 3 /uL 02/10/2018 10:06 PM [facility] RBC 4.86 4.30 - 5.70 10? 6 /uL 02/10/2018 10:06 PM [facility] Hemoglobin 14.7 13.5 - 17.5 g/dL 02/10/2018 10:06 PM [facility] Hematocrit 42.0 39.0 - 50.0 % 02/10/2018 10:06 PM [facility] MCV 86.4 81.0 - 97.0 fL 02/10/2018 10:06 PM [facility] MCH 30.2 28.0 - 34.0 pg 02/10/2018 10:06 PM [facility] MCHC 35.0 32.0 - 36.0 g/dL 02/10/2018 10:06 PM [facility] Platelet Count 290 150 - 400 10? 3 /uL 02/10/2018 10:06 PM [facility] RDW-SD 41.0 36.0 - 50.0 fL 02/10/2018 10:06 PM [facility] RDW-CV 12.8 11.2 - 14.8 % 02/10/2018 10:06 PM [facility] MPV 11.4 9.3 - 12.8 fL 02/10/2018 10:06 PM [facility] Neutrophils % 64.6 35.0 - 70.0 % 02/10/2018 10:06 PM [facility] Lymphocytes % 23.5 19.7 - 55.1 % 02/10/2018 10:06 PM [facility] Monocytes % 10.0 3.0 - 15.0 % 02/10/2018 10:06 PM [facility] Eosinophils % 1.7 0.0 - 6.0 % 02/10/2018 10:06 PM [facility] Basophil % 0.2 0.0 - 1.5 % 02/10/2018 10:06 PM [facility] Neutrophils Absolute 6.6 1.6 - 7.0 10? 3 /uL 02/10/2018 10:06 PM [facility] Lymphocyte Absolute 2.4 0.8 - 2.9 10? 3 /uL 02/10/2018 10:06 PM [facility] Monocytes Absolute 1.02(H) 0.14 - 0.66 10? 3 /uL 02/10/2018 10:06 PM [facility] Eosinophils Absolute 0.17 0.00 - 0.22 10? 3 /uL 02/10/2018 10:06 PM [facility] Basophils Absolute 0.02 0.00 - 0.06 10? 3 /uL 02/10/2018 10:06 PM [facility] Immature Granulocytes % 0.2 0.0 - 1.0 % 02/10/2018 10:06 PM [facility] Blood BLOOD SPECIMEN / Unknown Lab Venipuncture / Unknown 02/10/2018 10:01 PM CDT 02/10/2018 10:01 PM [facility] Joseph Miller MD LAB - HEMATOLOGY ORD ERABLES Performing Organization Address City/State/[facility] Co de Phone Number [facility] [address] [phone] * (ABNORMAL) COMPREHENSIVE METABOLIC PANEL (02/10/2018 10:01 PM CDT) BUN 10 7 - 26 mg/dL 02/10/2018 10:24 PM [facility] Creatinine 0.7 0.6 - 1.2 mg/dL 02/10/2018 10:24 PM [facility] Sodium 140 136 - 145 mmol/L 02/10/2018 10:24 PM [facility] Potassium 3.5 3.5 - 4.5 mmol/L 02/10/2018 10:24 PM [facility] Chloride 103 98 - 107 mmol/L 02/10/2018 10:24 PM [facility] CO2 31(H) 22 - 29 mmol/L 02/10/2018 10:24 PM [facility] Glucose 129(H) 70 - 115 mg/dL 02/10/2018 10:24 PM [facility] Calcium 9.4 8.4 - 10.2 mg/dL 02/10/2018 10:24 PM [facility] Protein Total 6.6 6.0 - 8.3 g/dL 02/10/2018 10:24 PM [facility] Albumin 3.7 3.4 - 5.0 g/dL 02/10/2018 10:24 PM [facility] Bilirubin Total 0.6 0.2 - 1.2 mg/dL 02/10/2018 10:24 PM [facility] Alkaline Phosphatase 65 40 - 150 Units/L 02/10/2018 10:24 PM [facility] ALT 18 0 - 55 Units/L 02/10/2018 10:24 PM [facility] AST 12 5 - 34 Units/L 02/10/2018 10:24 PM [facility] Anion Gap 10 8 - 18 02/10/2018 10:24 PM [facility] BUN/Creatinine Ratio 14 7 - 23 02/10/2018 10:24 PM [facility] Osmolality Calculated 291 270 - 300 mOsm/kg 02/10/2018 10:24 PM [facility] Albumin/Globulin Ratio 1.3 1.1 - 2.3 02/10/2018 10:24 PM [facility] eGFR >60 >60 mL/min/1.7 3 m2 02/10/2018 10:24 PM [facility] Blood BLOOD SPECIMEN / Unknown Lab Venipuncture / Unknown 02/10/2018 10:01 PM CDT 02/10/2018 10:01 PM CDT Joseph Miller MD LAB - CHEMISTRY [facility] [address] [phone] * PHOSPHORUS BLOOD (02/10/2018 10:01 PM CDT) Phosphorus 3.5 2.3 - 4.7 mg/dL 02/10/2018 10:24 PM [facility] Blood BLOOD SPECIMEN / Unknown Lab Venipuncture / Unknown 02/10/2018 10:01 PM CDT 02/10/2018 10:01 PM CDT Joseph Miller MD LAB - CHEMISTRY [facility] [address] [phone] * VITAMIN B12 (02/10/2018 10:01 PM CDT) Vitamin B12 516 213 - 816 pg/mL 02/11/2018 12:31 AM CDT [facility] Blood BLOOD SPECIMEN / Unknown Lab Venipuncture / Unknown 02/10/2018 10:01 PM CDT 02/10/2018 10:01 PM CDT Joseph Miller MD LAB - CHEMISTRY [facility] [address] [phone] * TSH (02/10/2018 10:01 PM CDT) TSH 2.836 0.350 - 4.940 uIU/mL 02/11/2018 12:31 AM CDT [facility] Blood BLOOD SPECIMEN / Unknown Lab Venipuncture / Unknown 02/10/2018 10:01 PM CDT 02/10/2018 10:01 PM CDT Joseph Miller MD LAB - CHEMISTRY [facility] [address] [phone] Care Teams Compliance Director Relationship Specialty Start Date End Date Twan Bowen MD [address] [place] [id number] PCP - General 02/13/18
--- OUTSIDE RECORDS SUMMARY | 2024-09-30 09:44 | XMS_ITS | Clinical Summary ---
Author Organization [facility] Address [address] [place] [address] Care Team Providers Care Assistant Professor Of Dietetics Name Role Phone Twan Bowen MD Primary Care Provider Source Comments [facility],non-owned Affiliates and Associated Physician Practices is amultiple site organization consisting of ambulatory clinics and hospital sitesin [place], [place], [place] and [place]. This disclosure is being madepursuant to the Care Everywhere program and may not contain all information available regarding this patient. Last updated 18.[facility] Allergies No known active allergies Medications * [...] for Insomnia Active vitamin D, ergocalciferol, (DRISDOL) 14034 UNITS capsule Take 50,000 Units by mouth [...] Immunizations Name Administration Dates Next Due Yar[employer] primary monoval ent 12+ yr 0.3mL Purple [...] Mass Index 27.15 12/25/2021 11:08 AM CDT Plan of Treatment Health Maintenance Due Date Last Done Comments COLOGUARD (AGES 45-75) - COLON CA SCREENING 1955 COLON MONITORING 1955 COLONOSCOPY - COLON CA SCREENING 1956 CT COLONOGRAPHY - COLON CA SCREENING 1955 Colorectal Cancer Screening 1955 FIT - COLON CA SCREENING 1955 FLEX SIG - COLON CA SCREENING 1955 HEPATITIS C SCREENING 05/07/1974 DTAP/TDAP/TD VACCINES (1 - Tdap) 1975 PNEUMOCOCCAL VACCINE 50+ (1 of 2 - PCV) 1975 LUNG CANCER SCREENING 2006 ZOSTER VACCINE (1 of 2) 2006 Respiratory Syncytial Virus (RSV) Vaccine Pt: or over 60 yrs (1 - Risk 60-74 years 1-dose series) 2016 AAA SCREENING 2021 SCREENING FOR DIABETES 12/25/2021 8, 02/13/2018, 02/13/2018, Additional history exists COVID-19 VACCINE ( season) 2024 07/27/2021, 12/29/2020, 12/08/2020 INFLUENZA VACCINE (#1) 2024 07/27/2021 DEPRESSION SCREENING 09/08/2024 HEPATITIS B VACCINE Aged Out No longe r eligible based on patient's age to complete this topic HIB VACCINE Aged Out No longer eligi ble based on patient's age to complete this topic HPV VACCINE Aged Out No longer eligi ble based on patient's age to complete this topic MENINGOCOCCAL (Group B) VACCINE Aged Out No longer eligible based on patient's age to complete this topic MENINGOCOCCAL VACCINE Aged Out No thai kushal eligible based on patient's age to complete this topic Procedures Procedure Name Priority Date/Time Associated Diagnosis Comments GLUCOSE - POINT OF CARE Routine 02/13/2018 12:35 AM CDT from Last 3 Months or Most Recently Relevant to Health Maintenance Results * (ABNORMAL) GLUCOSE - POINT OF CARE (02/13/2018 12:35 AM CDT) Glucose WB/POC 173(H) 70 - 115 mg/dL 02/13/2018 12:52 AM CDT [facility] Specimen Type Arterial/C apillary 02/13/2018 12:52 AM CDT [facility] Blood BLOOD SPECIMEN / Unknown 02/13/2018 12:35 AM CDT 02/13/2018 12:52 AM CDT Narrative [facility] - 02/13/2018 12:52 AM CDT [employer] Chief Operator: ELKIN ??MOHAN Ronny Menjivar MD LAB - POINT OF CARE ORDERABLES Performing Organization Address City/State/[facility] Co de Phone Number [address] [phone] from Last 3 Months or Most Recently Relevant to Health Maintenance Advance Directives * Full Code (Latest Code Status on File) Date Activated Date Inactivated Comments 02/10/2018 9:47 PM 02/13/2018 4:41 PM Care Teams Assistant Professor Of Dietetics Relationship Specialty Start Date End Date Twan Bowen MD [address] [place] [address] PCP - General 02/13/18
--- OUTSIDE RECORDS SUMMARY | 2024-09-30 09:44 | XMS_ITS | Clinical Summary ---
Author Organization [facility] Address [address] [place] [address] Phone Care Team Providers Care Flight Tower Dispatcher Name Role Phone Twan Bowen MD Primary Care Provider [phone] Allergies No known active allergies Medications metFORMIN (GLUCOPHAGE) 500 mg tablet TK 1 T PO BID WITH MORNING AND ANTONIA MEALS FOR DM 3 11/27/2017 Active gabapentin (NEURONTIN) 100 mg capsule Take 100 mg by mouth 3 times daily. Active hyoscyamine 0.125 mg tablet Take 1 Tablet (0.125 mg) by mouth 3 times daily as needed for Spasm. 30 Tablet 1 12/16/2017 Active rosuvastatin (CRESTOR) 10 mg tablet Take 10 mg by mouth daily. Active lisinopriL (PRINIVIL) 10 mg tablet Take 10 mg by mouth daily. Active Active Problems Problem Noted Date Diagnosed Date Leukemoid reaction 05/09/2021 Early satiety 12/17/2017 Weight loss 12/17/2017 Family History Medical History Relation Name Comments Cancer Brother Diabetes Brother Diabetes Father Pancreatic Cancer Father Diabetes Mother Heart Disease Mother Diabetes Sister Colon Cancer Neg Hx Relation Name Status Comments Brother Alive Father Mother Sister Alive Social History Tobacco Use Types Packs/Day Years Used Date Smoking Tobacco: Every Day Cigarettes Smokeless Tobacco: Never Alcohol Use Standard Drinks/Week Comments No 0 (1 standard drink = 0.6 oz pur e alcohol) Sex and Gender Information Value Date Recorded Sex Assigned at Not on file Legal Sex Male 10:04 AM CDT Gender Identity Not on file Sexual Orientation Not on file Last Filed Vital Signs Vital Sign Reading Time Taken Comments Blood Pressure 161/84 06/05/2021 1:21 PM CDT Pulse 66 06/05/2021 1:21 PM CDT Temperature 36.6 ??C (97.9 ??F) 06/05/2021 1:21 PM CD T Respiratory Rate 16 01/07/2018 12:49 PM CDT Oxygen Saturation 97% 06/05/2021 1:21 PM CDT Inhaled Oxygen Concentration - - Weight 91.3 kg (201 lb 3.2 oz) 06/05/2021 1:21 P M CDT Height 182.9 cm (6') 06/05/2021 1:21 PM CDT Body Mass Index 27.29 06/05/2021 1:21 PM CDT Plan of Treatment Health Maintenance Due Date Last Done Comments PNEUMOCOCCAL VACCINE 65+ YEA RS (1 of 2 - PCV) 1975 FIT-DNA Q 3 years 2001 FIT/FOBT Q 1 year 2001 Flex Sig/CT Colonography Q 5 years 2001 ZOSTER VACCINE (1 of 2) 2006 RSV VACCINE (60+ or ) (1 - Risk 60-74 years 1-dose series) 2016 DTAP/TDAP/TD VACCINES (2 - T d or Tdap) 02/22/2018 02/23/2008 INFLUENZA VACCINE (#1) 2024 5, 06/11/2014, 07/10/2013, Additional history exists COLORECTAL SCREENING 01/08/2028 01/07/2018, 01/08/20 18 Colorectal Cancer Screening 01/08/2028 Procedures Procedure Name Priority Date/Time Associated Diagnosis Comments COLONOSCOPY REPORT 01/07/2018 12 :58 PM CDT from Last 3 Months or Most Recently Relevant to Health Maintenance Results * COLONOSCOPY REPORT (01/07/2018 12:58 PM CDT) Narrative Procedure Note Minnie Méndez MD - 01/07/2018 12:58 PM CDT [facility] Patient Name: Az Vick Procedure Date: 01/07/2018 Date of : 1955 Admit Type: Outpatient Age: 62 Attending MD: Minnie Méndez MD Procedure: Colonoscopy Indications: Weight loss, Abdominal mass Patient Profile: 62 yo with early satiety, weight loss, abdominal mass per patient here for evaluation Providers: Minnie Méndez MD Referring MD: Twan Bowen MD Medicines: Monitored Anesthesia Care Procedure: Informed consent was obtained for the procedure, including moderate sedation after risks were discussed. Based on the pre-procedure assessment, including review of the patient's medical history, medications, allergies, and review of systems, the patient was deemed to be an appropriate candidate for sedation. A timeout was performed. Continuous ECG monitoring, pulse oximetry, blood pressure monitoring, and direct observation were performed. The Colonoscope was introduced through the anus and advanced to the terminal ileum. The colonoscopy was performed without difficulty. The patient tolerated the procedure well. The quality of the bowel preparation was adequate to identify polyps. The quality of the bowel preparation was evaluated using the BBPS (Ramona Bowel Preparation Scale) with scores of: Right Colon = 3 (entire mucosa seen well with no residual staining, small fragments of stool or opaque liquid), Transverse Colon = 2 (minor amount of residual staining, small fragments of stool and/or opaque liquid, but mucosa seen well) and Left Colon = 2 (minor amount of residual staining, small fragments of stool and/or opaque liquid, but mucosa seen well). The total BBPS score equals 7. The quality of the bowel preparation was good (after significant washing/cleaning). The terminal ileum, ileocecal valve, appendiceal orifice, and rectum were photographed. Estimated Blood Loss: Estimated blood loss: none. Findings: The perianal exam findings include non-thrombosed external hemorrhoids and perianal condylomata vs large skin tag. The terminal ileum appeared normal. A 6 mm polyp was found in the cecum. The polyp was sessile. The polyp was removed with a cold snare. Resection and retrieval were complete. Two sessile polyps were found in the transverse colon. The polyps were 4 to 5 mm in size. These polyps were removed with a cold snare. Resection and retrieval were complete. External hemorrhoids were found during retroflexion. The hemorrhoids were moderate. Complications: No immediate complications. Moderate Sedation: None Impression: - Non-thrombosed external hemorrhoids and perianal condylomata found on perianal exam. - The examined portion of the ileum was normal. - One 6 mm polyp in the cecum, removed with a cold snare. Resected and retrieved. - Two 4 to 5 mm polyps in the transverse colon, removed with a cold snare. Resected and retrieved. - External hemorrhoids. Recommendation: - Repeat colonoscopy in 3 years for surveillance. - Recommend evaluation of perianal condyloma vs skin tag - Recommend patient complete entire bowel prep for next colonoscopy to ensure prep is clear. Minnie Méndez MD 01/07/2018 12:57:55 PM This report has been signed electronically. Number of Addenda: 0 Procedure Date: 01/07/2018 11:34:[address] [place] [address] Minnie Méndez MD GI PROCEDURE ORDERABLES Final Re sult from Last 3 Months or Most Recently Relevant to Health Maintenance Insurance Member Subscriber Plan / Payer (Ef fective 2021-Present) Name:Az Vick Relation to Subscriber:Self Name:Goodman Az Payer ID:Not on file Group ID:Not on file Type:[facility] Address: [address] [facility]REFERRED [facility] Advance Directives For more information, please contact: [phone] * Full Code (Latest Code Status on File) Date Activated Date Inactivated Comments 01/07/2018 10:44 AM 01/07/2018 3:26 PM Care Teams Flight Tower Dispatcher Relationship Specialty Start Date End Date Twan Bowen MD [address] [place] [address] PCP - General Family Practice 12/17/17
== END 2024-09-27 09:43 | disposition home or self-care (01) ==
LOC: ANHED 04:12 → ANH2MED 13:22
PROVIDERS: Admitting Provider Internal Medicine; Emergency Provider Emergency Medicine; PCP Family Medicine; Visit Provider Family Medicine
DX: I63.89 Other cerebral infarction (principal); R29.810 Facial weakness; R29.701 NIHSS score 1; I11.9 Hypertensive heart disease without heart failure; E78.2 Mixed hyperlipidemia; E11.40 Type 2 diabetes mellitus with diabetic neuropathy, unspecified; G47.30 Sleep apnea, unspecified; F17.210 Nicotine dependence, cigarettes, uncomplicated; Z79.899 Other long term (current) drug therapy
CPT/HCPCS: 36415; 70496; 70498; 70553; 71045; 80053; 84484; 85025; 85610; 85730; 93005; 96372; 96374; 97161; 97165; 99285; A9270; A9577; G0378; J0360; J1650; Q9967

== ENCOUNTER 2024-10-18 13:08 | Outpatient (CLI) | payer MEDICARE, OTHER, SELFPAY ==
--- NOTE | ~2024-10-18 | CT_ITS ---
EXAMINATION:CT lung screening DATE: 10/18/2024 13:41 INDICATION: Personal history of nicotine dependence. Current smoker with 30 pack year history. TECHNIQUE: Computed tomography (CT) of the chest was performed without intravenous contrast. Automate d exposure control and iterative reconstruction technique were employed. The dose-length product (DLP ) was 78.54 mGy-cm. COMPARISON: Chest CT 02/06/2018 FINDINGS: There groundglass opacities at right lung apex. There is a 3 mm nodule in right upper lobe. No pleural effusion. The heart size is normal. There are coronary artery calcifications. No pericard ial effusion. There are bridging endplate osteophytes at multiple levels in the spine, consistent wit h diffuse idiopathic skeletal hyperostosis (DISH). IMPRESSION: 1. Lung-RADS category 2: Benign appearance or behavior. Continue annual screening with noncontrast lo w-dose chest CT in 12 months. Reviewed, dictated and finalized at location A. AREA NETWORK ADMINISTRATOR IMPRESSION: 1. Lung-RADS category 2: Benign appearance or behavior. Continue annual screeni ng with noncontrast low-dose chest CT in 12 months.
--- NOTE | ~2024-10-18 | XR_ITS ---
CHEST RADIOGRAPH, PA AND LATERAL CLINICAL HISTORY: R05.9 - Cough, unspecified . COMPARISON: 09/26/2024 TECHNIQUE: PA and lateral views of the chest. FINDINGS The cardiomediastinal silhouette is unremarkable. The lungs are clear. Visualized osseous structures and soft tissues are unremarkable. IMPRESSION: No focal infiltrate or effusion. Reviewed, dictated and finalized at location A. ETRICIAN
== END 2024-10-18 13:09 | disposition home or self-care (01) ==
LOC: MICIMG 13:08
PROVIDERS: PCP Family Medicine; Visit Provider Family Medicine
DX: Z12.2 Encounter for screening for malignant neoplasm of respiratory organs (principal); Z87.891 Personal history of nicotine dependence; R05.9 Cough, unspecified
CPT/HCPCS: 71046; 71271